=== PATIENT | female | born 1965 | race Caucasian/White ===

== ENCOUNTER 2024-11-04 14:20 | Inpatient (IN) | payer OTHER, SELFPAY ==
[2024-11-04] VITALS (11 sets, daily range): BP systolic 109–177; BP diastolic 58–93; BMI 27.6; BMI 26.1
[2024-11-04] MEDS: NSS 1000 IV ×2 (10:27→19:57)
[2024-11-04] MEDS: ZOFRAN 4 MG IV (10:27)
[2024-11-04] MEDS: TORADOL 15 MG IV (10:28)
[2024-11-04 10:37] LABS: % Basophils 0.3 % (0-2); % Immature Granulocytes 0.6 % (0-0.5); % Lymphocytes 6.9 % (20.5-51.1); % Monocytes 5.8 % (1.7-9.3); % Neutrophils 86.4 % (42.2-75.2); Absolute Immature Granulocytes 0.1 10^3/uL (0-0.05); Absolute Monocytes 0.8 10^3/uL (0.1-0.6); Absolute Neutrophils 12.5 10^3/uL (1.4-6.5); Hematocrit 41.7 % (37.0-47.0); Hemoglobin 14.8 g/dL (12.0-16.0); Mean Corp Hgb Conc. 35.5 g/dL (33.0-37.0); Mean Corpuscular Hgb 31.2 pg (27.0-31.0); Mean Platelet Volume 9.6 fL (7.4-10.4); Nucleated Red Blood Cells % 0 %; Platelet Count 248 10^3/uL (130-400); Red Blood Cell Count 4.74 10^6/uL (4.20-5.40); Red Cell Dist. Width 11.9 % (11.5-14.5); White Blood Cell Count 14.4 10^3/uL (4.8-10.8)
[2024-11-04 10:50] LABS: Albumin 4.6 g/dl (3.5-5.0); Blood Urea Nitrogen 14 mg/dl (7-17); Carbon Dioxide 24 mmol/L (22-30); Total Bilirubin 0.9 mg/dl (0.2-1.3); Total Protein 7.1 g/dl (6.3-8.2); eGFR > 60.00
--- NOTE | 2024-11-04 10:54 | ED.GENMED ---
History of Present Illness
General
Chief Complaint: Abdominal Pain
Source: patient
Exam Limitations: none
Time Seen by Provider: 11/04/24 09:53
Nursing documentation reviewed up to this point in time: agreed with
History of Present Illness
History of Present Illness:
59 y/o F with no chronic medical problems
diagnosed with gallstone back in [facility] [place] on imaging
says she was offered surgery but declined
has been well
2 daysa go she started having soem looser stool but not quite diarrhea, no pain
was well yesterday during the day
she ate bel[place]ian food last night at buffet
thne around 3 am woke with epigastric/RUQ pain followed by nausea/vomtiing
vomited several times
now feels more nauesated and has pain
no cp, sob, fever
she has had some letharyg; her said she fainted; but pt was talking to us when he also said she was fatining;
Review of Systems
Review of Systems
Allergies reviewed?: Yes
All Other Systems: Not applicable
Phy Exam
Physical Exam
Physical Exam:
GENERAL: Alert , in no apparent distress, generally weak
responsive
EYE: pupils equal and reactive
NECK: Supple
ENT: o/p clr, mmm.
CARDIAC: Regular rate and rhythm .
LUNGS: Clear breath sounds bilaterally, no acute respiratory distress, no wheezes/rales/rhonchi
ABDOMEN: Soft, RUQ tenderness + muprhy's sign;, no r/g, no cvat, normal bowel sounds
NEUROLOGICAL: Alert and oriented, no focal neuro deficits
SKIN: Warm and dry, skin intact. pale
MUSCULOSKELETAL: No edema, well perfused. neg ana lilia's sign
PSYCH: Normal and appropriate interaction.
Course
Orders/Labs/Results
Orders:
Orders
11/04/24 10:05
US Abdomen Complete/Upper Urgent
Comment:
Reason For Exam: known gallstones, vomiting, RUQ pain
11/04/24 10:18
Electrocardiogram (*1) Urgent
Reason for Study: Abdominal Pain
0.9% Sodium Chloride 1000 ml [Nss] 1,000 ml IV BOLUS
Ketorolac [Toradol] 15 mg IV NOW STA
Ondansetron Injectable [Zofran] 4 mg IV NOW STA
11/04/24 10:19
EKG- Treatment ONCE
11/04/24 10:24
Complete Blood Count/With Diff Urgent
Comprehensive Metabolic Panel Urgent
Glycohemoglobin (HgbA1c) Urgent
Lipase Urgent
Troponin I Urgent
11/04/24 11:04
Urinalysis Reflex To Culture Urgent
Date Specimen was Collected: 11/04/24
Time Specimen was Collected: 10:58
Urine Microscopic Reflex Cult Urgent
11/04/24 12:20
MRI Abdomen [MR Abdomen W/o & W Contrast] Urgent
Comment:
Reason For Exam: vomiting, gallsteons, cbd dilation
Recent pill cam endoscopy?: No
11/04/24 13:01
Admit/Transfer Patient As Directed
Co-Sign Provider:
Level of Care: Inpatient admission
Assign to:: Medical/Surgical
Physician / Group: efrem arthur
Diagnosis: Cholelithiasis with CBD dilation, acute hyperglycemia
Reason for Hospitalization: Cholelithiasis with CBD dilation, acute hyperglycemia
Expected length of stay greater than two midnights?: Yes
ELOS- Estimated Length of Stay in days: 3
I certify the patient meets the requirements for IP care: Yes
Code Status As Directed
Resuscitation Status: Full Code
11/04/24 13:05
PRN Pain Medication Management As Directed
May give lesser potent ordered pain med per pt: Yes
preference::
Protocol:: Medication orders for pain may be administered in a
manner that supports deferring to patient preference
when the pt is:
- Requesting an ordered lesser potent pain medication.
Least to most potent pain medications are defined
as: acetaminophen < NSAID < tramadol < opioids
(morphine, oxycodone, hydromorphone).
- Requesting a lesser dose of the same medication IF
ORDERED.
- Requesting a less intrusive route of administration
if both routes are prescribed by the provider (PO <
IV).
11/04/24 13:07
Add On- LAB Urgent
Tests Added?: hgbA1c
SURGICAL CONSULT Routine
Consulting Provider: Leo Alvarez
Was physician already notified: Yes
Reason for consult: Cholelithiasis CBD dilation
11/04/24 13:08
GASTROINTESTINAL CONSULT Routine
Consulting Provider: Chago Logan
Was physician already notified: Yes
Reason for consult: Cholelithiasis CBD dilation
Abnormal Lab Results
11/04/24 11/04/24
10:24 11:04
WBC 14.4 H 10^3/uL
(4.8-10.8)
MCH 31.2 H pg
(27.0-31.0)
Abs Immat Gran (auto) 0.1 H 10^3/uL
(0-0.05)
Absolute Neuts (auto) 12.5 H 10^3/uL
(1.4-6.5)
Absolute Lymphs (auto) 1.0 L 10^3/uL
(1.2-3.4)
Absolute Monos (auto) 0.8 H 10^3/uL
(0.1-0.6)
Immature Gran % 0.6 H %
(0-0.5)
Neutrophils % 86.4 H %
(42.2-75.2)
Lymphocytes % 6.9 L %
(20.5-51.1)
Glucose 229 H mg/dl
(70-99)
Hemoglobin A1c 7.0 H %
(4.0-5.6)
Urine Ketones 3+ A
(Negative)
Urine RBC 3-6 A /HPF
(0-2)
Urine Bacteria (Reflex) Few A
(Negative)
Urine Glucose 4+ A
(Negative)
Urine Albumin (Reflex) 1+ A
(Neg - Trace)
11/04/24 10:24
11/04/24 10:24
Vital Signs
Initial and Last Documented VS:
Initial Vital Signs
Pulse Resp BP Pulse Ox
67 18 165/93 100
11/04/24 09:04 11/04/24 09:04 11/04/24 09:04 11/04/24 09:04
Last Documented Vital Signs
Temp Pulse Resp BP Pulse Ox
36.3 C 81 18 126/76 94
11/04/24 09:08 11/04/24 15:00 11/04/24 15:00 11/04/24 15:00 11/04/24 15:00
MDM/Problems Addressed
Differential Diagnosis Includes:
cholelithiasis, cholecystitis, enteritis
MDM/Problems Addressed:
59 y/o F known gallstone
RUQ pain, n/v since 3 am
afebrile
tender ruq, stable vitals
wbc 14
lfts normal
US cholelithiasis, no cholecystitis but cbd is dilated 9 mm
d/w GI and i sent text to surgery as well
MRI w and w/o and MRCP which is what i ordered (both studies)
npo
*Critical Care Note
Total Time (30-74mins, 75-104mins- exclusive of procedures): Not Applicable
ED Attending Note
-
Portions of this chart may have been created with voice recognition software.� Occasional wrong word or��sound alike� substitutions may have occurred due to the inherent limitations of voice recognition software.
Discharge Plan
Departure
Patient Disposition: Admit
Date of Disposition: 11/04/24
Time of Disposition: 12:14
Admit to: Med/Surg
Presentation/result/management discussed w/ accepting MD/DO: Hospitalist
Condition: Fair
Covid-19: Not Applicable
Discharge Problem:
Cholelithiasis
Interventions
Interventions:
*Risk Screen - Suicide Last Done: 11/04/24 09:04
*General Assessment Last Done: 11/04/24 09:04
*Neglect/Abuse Screening Last Done: 11/04/24 09:04
*ED- Fall Risk Assessment Last Done: 11/04/24 11:48
*ED COVID-19 Vaccine History Last Done: 11/04/24 11:52
NG-Evabvw-Wnbcxrsszl Assessment Last Done: 11/04/24 10:14
[2024-11-04 10:59] LABS: Troponin I < 0.012 ng/ml
[2024-11-04 11:31] LABS: Urine Albumin 1+ (Neg - Trace); Urine Bilirubin Negative (Negative); Urine Character Clear (Clear); Urine Color Yellow; Urine Glucose 4+ (Negative); Urine Ketone 3+ (Negative); Urine Leukocyte Negative (Negative); Urine Nitrite Negative (Negative); Urine Occult Blood Negative (Negative); Urine Specific Gravity 1.015 (<1.030); Urine Urobilinogen Negative (Neg - 1+)
[2024-11-04 12:02] LABS: ALT (SGPT) 16 U/L (0-35); AST (SGOT) 20 U/L (14-36); Alkaline Phosphatase 64 U/L (38-126); Calcium 9.8 mg/dl (8.4-10.2); Chloride 103 mmol/L (98-107); Glucose 229 mg/dl (70-99); Lipase 87 U/L (23-300); Potassium 3.6 mmol/L (3.5-5.1); Sodium 138 mmol/L (135-145)
[2024-11-04 12:23] LABS: Urine Mucus Few
[2024-11-04 12:25] LABS: Urine Bacteria Few (Negative)
--- NOTE | 2024-11-04 12:31 | HPS.HSE ---
Family Physician
-
Family Physician: Ted Berger MD
Chief Complaint
-
Right upper quadrant abdominal pain since last night with multiple episodes of nausea, vomiting, loose stool 2 days ago
History of Present Illness
59-year-old female complaining of some loose stool 2 days ago then yesterday after eating at a [place] buffet last night she woke up at 3 AM with right upper quadrant and epigastric pain followed by nausea and vomiting several times. She was
diagnosed with a gallstone back in March 2024 at [facility] on imaging studies she was offered surgery at that time but declined. She states her sister also had history of gallstones and required a cholecystectomy. 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 The patient has known history of gallstones discovered March 2024 and menopause on hormonal
replacement therapy
Medical History
Past Medical History
Past Medical History: Reports Other
Additional Past Medical History:
Menopause
Past Surgical History: Reports Other
Additional Past Surgical History:
Appendectomy
section
Social History
Tobacco: Non-smoker
Alcohol: None
Drug: None
Personal:
Living: With Family
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
Family History
Family History: Other (Sister history of gallstones)
Allergies / Home Medications
Allergies reflects when Allergies were last updated in [employer].
Home Medications with original date entered in [employer]
Allergy/Medication List:
Allergies
Allergy/AdvReac Type Severity Reaction Status Date / Time
No Known Allergies Allergy Unverified 11/04/24 09:03
Home Medications
Combipatch 1 patch topical TH 11/04/24
ascorbic acid (vitamin C) 500 mg tablet (Vitamin C) 500 mg PO DAILY 11/04/24
cholecalciferol (vitamin D3) 25 mcg (1,000 unit) tablet (Vitamin D3) 25 mcg PO DAILY 11/04/24
jb-7-ycx-epa-fish oil-vit D3 300 mg-1,000 mg-1,000 unit capsule (Fish Oil-Vit D3) 1 cap PO DAILY 11/04/24
Review of Systems
-
History Source: Patient and Family ( at bedside)
A 12 point ROS was completed and negative except as noted: Yes
Constitutional: Denies Fever or Chills
EENT: Denies Sore Throat or Runny Nose
Respiratory: Denies Cough or Trouble Breathing
Cardiac: Denies Chest Pain, Diaphoresis, Palpitations or Syncope
Abdomen/GI: Reports Abdominal Pain (Right upper quadrant through to back), Nausea and Vomiting; Denies Diarrhea, Constipated or Bloody Stools
: Denies Dysuria, Frequency, Flank Pain, Incontinence or Difficulty Voiding
Musculoskeletal: Denies Joint Pain or Edema
Skin: Denies Itching or Rash
Neurological: Denies Dizzy or Headache
Endocrine: Reports No Symptoms
Hematologic/Lymphatic: Reports No Symptoms
Psych: Reports Calm
Physical Exam
Vital Signs
Vital Signs
Temp Pulse Resp BP Pulse Ox
97.3 F 67 18 135/79 96
11/04/24 09:08 11/04/24 09:04 11/04/24 09:04 11/04/24 12:00 11/04/24 12:00
Physical Exam
General: Conversant; No Fever or Chills
HEENT: NormoCephalic, Anicteric, Moist mucous membranes, [place] Conjunctivae and No Ptosis
Respiratory: Clear; No Wheezes, Rales or Rhonchi
Cardiac: S1/S2 and Regular Rhythm; No Murmur, Rub, Gallop or Peripheral Edema
Breast: Deferred by me
GI: Soft, Non Distended, Normal Bowel Sounds, Tender (Right upper quadrant, positive Wilson sign) and No Hepatosplenomegaly
Rectal: Deferred by Provider
Genito-urinary: Deferred by me
Musculoskeletal: No Clubbing, No Cyanosis and No Edema
Skin: Warm and Dry; No Rash
Neuro: AO x 3, No Motor Deficits, Nonfocal/grossly intact, Cranial Nerves Intact and No Sensory Deficits; No Slurred Speech, Facial Droop, Tremors or Sedated
Psych: Calm
Laboratory Results
-
11/04/24 10:24
11/04/24 10:24
Laboratory Results
Total Bilirubin 0.9 mg/dl (0.2-1.3) 11/04/24 10:24
AST 20 U/L (14-36) 11/04/24 10:24
ALT 16 U/L (0-35) 11/04/24 10:24
Alkaline Phosphatase 64 U/L (38-126) 11/04/24 10:24
Troponin I < 0.012 ng/ml 11/04/24 10:24
Lipase 87 U/L (23-300) 11/04/24 10:24
Data Reviewed
-
Ultrasound: Report Reviewed by me
Lab Data: Labs Reviewed by me
Impression/Plan
-
Impression/plan:
Admit to MedSurg
#Acute cholelithiasis with CBD dilation concern for obstructing stone
WBC 14.4 with left shift, afebrile 97.3, HR 67, 135/79
LFTs WNL
- Consult GI
-Consult general surgery
- N.p.o.
- IV NSS
- MRI with and without contrast and MRCP
- IV Toradol
- IV Zofran
- Pain control
Abdominal ultrasound abdomen complete:
1. Cholelithiasis no abnormal gallbladder wall thickening
2. Dilation of the common bile duct measuring 9 mm no duct filling defects
3. Question complex cyst right kidney .
#Acute hyperglycemia
BS 229, check HgbA1c
#Menopause on hormonal patch
- Patient is on estradiol/norethindrone transdermal patch once a week on
DVT prophylaxis
SCDs
Full code
--- NOTE | 2024-11-04 12:39 | W.PN.UPDATE ---
Addendum entered and electronically signed by Deangelo Wilks MD 11/05/24 11:43:
11/04/24 MRI /MRCP abdomen
1. ACUTE CALCULUS CHOLECYSTITIS.
2. Mild extrahepatic biliary dilatation.
3. Tiny pancreatic cysts measuring up to 3 mm in size.
4. Small bilateral renal cysts.
5. Small hiatal hernia.
Addendum entered and electronically signed by Deangelo Wilks MD 11/04/24 13:11:
Random BG low 200s DDX: pre diabetic vs. Glucose intolerance
- check A1C
Original Note:
Update Note
Progress Note Update
This note serves as an addendum to the H&P by gastroenterologist JUAN CARLOS ISRAEL
HPI
59F No significant PMHX diagnosed with gallstone March 2024 [facility] on imaging. She says she was offered surgery but declined. She has been has been well. Seen at ER:
- 2 days ago having some looser stool but not quite diarrhea. No pain with loose BM
- had [place] food last night at buffet then around 3 am woke with epigastric/RUQ pain followed by nausea/vomtiing
- vomited several times
PHX; known Gall stone
Vital Signs
Temp Pulse Resp BP Pulse Ox
97.3 F 67 18 135/79 96
11/04/24 09:08 11/04/24 09:04 11/04/24 09:04 11/04/24 12:00 11/04/24 12:00
PE
Gen: pleasant, not toxic
HEENT: anicteric
Neck: no JVD
Lungs: CTA
Cor: RRR S1 S2
Abdomen: soft NT, NG, NRT
MEDICAL SALES SPECIALIST: AAO3, NFND
MS: no edema
Psych: approriate, nl mood and affect
Data
WCC 14.4
Nl Cr Nl eGFR
BG 229
Nl LFts
Nl Lipase
NEG TPNI
NEG UA
US Abdomen Complete/Uppe
1. Cholelithiasis. No abnormal gallbladder wall thickening or pericholecystic fluid. Negative sonographic Wilson sign.
2. Dilation of the common bile duct. No common duct filling defects identified sonographically.
3. Question complex cyst right kidney as above. This could be further evaluated with follow-up contrast-enhanced CT nonemergently.
NO PRIOR hospitalist admission:
ASSESSMENT & PLAN
Acute biliary colic with RUQ pain and N/V
Sono POS for Cholelithiasis. No abnormal gallbladder wall thickening or pericholecystic fluid. Negative sonographic Wilson sign.
CBD dilatation . No filing defects in CBD
AFVSS
Tender RUQ
Afebrile leucocytosis wth Nl LFTs
- NPO and IVF
- PRN narcotic analgesia
- PRN Antiemetics
- Hold off ABx
- ER d/w GI and text to GS- - suggested MRI w and w/o and MRCP
- ER consulted to GI and GS
DVT Px: SCD
Full code
IP MS
--- NOTE | 2024-11-04 15:13 | CON.GS ---
Addendum entered and electronically signed by Leo Alvarez MD 11/05/24 09:13:
Delayed entry from 11/04/2024
I saw and examined the patient independently.
The Dial Screw Assembler's note was reviewed and I agree with the note, assessment and plan except where noted below.
Comment: This is a 59-year-old female with history of appendectomy and and known gallbladder disease and prior episodes of cholecystitis managed nonoperatively here with similar. She is reluctant to undergo definitive cholecystectomy
however exam, history, blood work and MRI imaging all consistent with acute calculus cholecystitis.
N.p.o., IV fluids, IV antibiotics.
Will discuss with patient tomorrow once again regarding surgery as this is certainly recommended with her clinical picture.
Surgery will follow.
Original Note:
Consultation
-
Date/Time Consultation Performed: 11/04/24 1500
Reason for Consultation: RUQ pain
Medical History
-
Chief Complaint: RUQ pain
History of Present Illness:
Ms Gongora is a 59 yo female with a h/o cholelithiasis with prior episode of cholecystitis with sepsis that was treated with antibiotics alone at [facility] in March as she declined surgery at that time. She notes that she may have passed a stone then
but did not require an ERCP. She has not followed with a surgeon as an outpatient since that time and denies other episodes of RUQ. Yesterday, she ate at a [employer] buffet and went to bed as usual but was awakened from sleep with severe RUQ pain
across the epigastrium and into her back with nausea and vomiting. She vomited multiple times and every time she tried to drink even water she vomited it up. Pain persisted causing her to present through the ED for evaluation. She notes that it is
much better after analgesics in the ED but still with pain to deep palpation in the RUQ (+wilson's). She denies fevers or chills.
Past Medical History
Past Medical History: Other (cholelithiasis/cholecystitis)
Past Surgical History: Appendectomy and
Social History
Tobacco: Non-Smoker
Alcohol: None
Personal:
Living: With Family
Family History
Family History: Reviewed & Not Pertinent
Allergies / Home Medications
Allergy/AdvReac Type Severity Reaction Status Date / Time
No Known Allergies Allergy Unverified 11/04/24 09:03
�Medication �Instructions �Recorded �Confirmed �Type
Combipatch 1 patch topical TH 11/04/24 11/04/24 History
ascorbic acid (vitamin C) 500 mg 500 mg PO DAILY 11/04/24 11/04/24 History
tablet (Vitamin C)
cholecalciferol (vitamin D3) 25 25 mcg PO DAILY 11/04/24 11/04/24 History
mcg (1,000 unit) tablet (Vitamin
D3)
sj-2-scd-epa-fish oil-vit D3 300 1 cap PO DAILY 11/04/24 11/04/24 History
mg-1,000 mg-1,000 unit capsule
(Fish Oil-Vit D3)
Review of Systems
-
History Source: Patient and Family
All other systems: Negative unless noted
A 10 point review of systems was completed, and was negative except as per HPI.
Physical Exam
Vital Signs
Temp Pulse Resp BP Pulse Ox
97.3 F 72 16 141/86 93
11/04/24 09:08 11/04/24 13:18 11/04/24 13:18 11/04/24 14:00 11/04/24 14:45
11/03/24 11/04/24 11/05/24
06:59 06:59 06:59
Actual Weight 73 kg
Body Mass Index (BMI) 27.6
Lab Results
11/04/24 10:24
11/04/24 10:24
WBC 14.4 10^3/uL (4.8-10.8) H 11/04/24 10:24
Hgb 14.8 g/dL (12.0-16.0) 11/04/24 10:24
Hct 41.7 % (37.0-47.0) 11/04/24 10:24
Plt Count 248 10^3/uL (130-400) 11/04/24 10:24
Abs Immat Gran (auto) 0.1 10^3/uL (0-0.05) H 11/04/24 10:24
Neutrophils % 86.4 % (42.2-75.2) H 11/04/24 10:24
Physical Exam
General: Well Developed and Well Nourished
HEENT: Moist Mucous Membranes
Respiratory: Non Labored Respirations
GI: Soft, Non Distended and Tender (RUQ )
Skin: Warm and Dry
Neuro: Awake, Alert and AO x 3
Psych: Calm
Data Reviewed
-
Ultrasound: Image Personally Visualized and interpreted, Report Reviewed by me, Discussed with Physician and Discussed with Patient
Labs: Labs Reviewed by me, Discussed with Physician and Discussed with Patient
Old Records: Reviewed
Assessment / Plan
-
Ms Gongora is a 59 yo female with a h/o cholelithiasis with prior episode of cholecystitis with sepsis that was treated with antibiotics alone at [facility] in March as she declined surgery at that time who developed RUQ overnight after a high fat meal
with n/v. US with cholelithiasis without pericholecystic fluid or gallbladder wall thickening. CBD dilated. LFT's WNL. Leukocytosis to 14.4. Wilson's positive on exam. No fevers, chills. VSS.
Discussed laparoscopic cholecystectomy, she is very apprehensive about surgery and is declining at this time. She is agreeable to possibly scheduling surgery in the future on an outpatient basis. She is agreeable to antibiotics.
--Start IV ABX with cefotetan BID
--Analgesics/antiemetics prn
--MRCP planned to r/o choledocholithiasis with GI consult pending
--NPO for now
--Trend labs/exams
--- NOTE | 2024-11-04 16:24 | CON.GI ---
Consultation
-
Date/Time Consultation Requested: 11/04/2024
Date/Time Consultation Performed: 11/04/2024
Requesting Provider:
Performing Provider:
Reason for Consultation: RUQ pain
Medical History
Chief Complaint / HPI
Chief Complaint: RUQ pain
History of Present Illness:
59-year-old female with no significant past medical history presenting with complaints of epigastric/right upper quadrant abdominal pain that woke her up from sleep early this morning after she had Italian food for dinner around 5 pm last
night.Radha pain, radiating f4rom epigastrium to RUQ and upper back. Nausea/vomiting of food and water. No fevers or chills. She reports that she was feeling well until yesterday and even after dinner was feeling fine. Patient has history of
cholecystitis/with sepsis in March 2024, was at [facility], treated with antibiotics and lap cholecystectomy suggested patient declined as she wanted to just modify diet and help symptoms. Since after her last episode,
patient denies any symptoms except last night.
On a regular basis, no abdominal pain,nausea, vomiting, heart burn or dysphagia. No constipation/diarrhea, blood or black stool. No TOOTIE/LOW, no NSAID use.
Reports having colonoscopy 5 yrs ago at [facility] with , rectal polyp removed and was asked to come back in 5 years. No h/o PUD.
In the emergency room, she was noted leukocytosis with white count of 14.4, CMP shows normal LFTs and lipase. Hemoglobin A1c elevated at 7.0.
Abdominal ultrasound shows cholelithiasis without any pericholecystic fluid or gallbladder wall thickening, dilation of the common duct to 9 mm without any aberrant filling defects.
No FH of colon ca.
Past Medical History
Past Medical History: None
Past Surgical History: Appendectomy and
Social History
Tobacco: Non-Smoker
Alcohol: None
Family History
Family History: Reviewed & Not Pertinent (sister-gall stones)
Allergies / Home Medications
Allergy/AdvReac Type Severity Reaction Status Date / Time
No Known Allergies Allergy Unverified 11/04/24 09:03
�Medication �Instructions �Recorded
Combipatch 1 patch topical TH 11/04/24
ascorbic acid (vitamin C) 500 mg 500 mg PO DAILY 11/04/24
tablet (Vitamin C)
cholecalciferol (vitamin D3) 25 25 mcg PO DAILY 11/04/24
mcg (1,000 unit) tablet (Vitamin
D3)
oe-1-dgn-epa-fish oil-vit D3 300 1 cap PO DAILY 11/04/24
mg-1,000 mg-1,000 unit capsule
(Fish Oil-Vit D3)
Review of Systems
-
All other systems: A 12 pt ROS was Negative except as stated above in HPI
Vital Signs
Temp Pulse Resp BP Pulse Ox
97.3 F 81 18 126/76 94
11/04/24 09:08 11/04/24 15:00 11/04/24 15:00 11/04/24 15:00 11/04/24 15:00
Physical Exam
Exam
GI: Soft and Tender (RUQ tenderness without guarding/rigidity)
Results
WBC 14.4 10^3/uL (4.8-10.8) H 11/04/24 10:24
Hgb 14.8 g/dL (12.0-16.0) 11/04/24 10:24
Hct 41.7 % (37.0-47.0) 11/04/24 10:24
MCV 88.0 fL (81.0-99.0) 11/04/24 10:24
Plt Count 248 10^3/uL (130-400) 11/04/24 10:24
Absolute Neuts (auto) 12.5 10^3/uL (1.4-6.5) H 11/04/24 10:24
Sodium 138 mmol/L (135-145) 11/04/24 10:24
Potassium 3.6 mmol/L (3.5-5.1) 11/04/24 10:24
Chloride 103 mmol/L (98-107) 11/04/24 10:24
Carbon Dioxide 24 mmol/L (22-30) 11/04/24 10:24
BUN 14 mg/dl (7-17) 11/04/24 10:24
Creatinine 0.6 mg/dL (0.6-1.0) 11/04/24 10:24
Calcium 9.8 mg/dl (8.4-10.2) 11/04/24 10:24
Total Bilirubin 0.9 mg/dl (0.2-1.3) 11/04/24 10:24
AST 20 U/L (14-36) 11/04/24 10:24
ALT 16 U/L (0-35) 11/04/24 10:24
Alkaline Phosphatase 64 U/L (38-126) 11/04/24 10:24
Lipase 87 U/L (23-300) 11/04/24 10:24
Diagnostic Image Results:
Prior GI Procedures:
EGD:
Colonoscopy:
Assessment / Plan
-
59-year-old female with history of cholelithiasis with sepsis March 2024 admitted at [facility] with
Laparoscopic cholecystectomy now presenting with epigastric/right upper quadrant abdominal pain that woke her up from sleep early this morning after eating Italian buffet last night. Normal LFTs and lipase.
Abdominal ultrasound showing gallstones without any evidence of acute cholecystitis but CBD dilation noted.
- RUQ/epigastric pain, r/o choledocholithiasis/biliary colic
Agree with MRI/MRCP- await results
Currently NPO
On cefotetan
If Choledocholithiasis, then will need ERCP otherwise further management per surgery.
Will f/u on the above testing.
f/u with OP GI for her routine colonoscopy.
.
-
-
Thank you for consultation and allowing me to participate in the patient's care. Please call the configuration management specialist GI physician during the after hours with any questions or concerns.
[2024-11-04] MEDS: CEFOTAN 2000 MG IV (17:22)
[2024-11-04] MEDS: STERILE WATER FOR INJECTION 10 ML IV (17:22)
[2024-11-04] MEDS: DILAUDID 0.5 MG IV (17:38)
--- NOTE | 2024-11-04 19:10 | W.PN.UPDATE ---
Update Note
Progress Note Update
I reviewed MRI. No stones in the common bile duct. LFTs are normal. MRI consistent with acute cholecystitis. Care per surgery. GI will sign off. Please call with questions.
[2024-11-04] MEDS: TORADOL 30 MG IV (19:56)
[2024-11-04 20:27] LABS: Glucose - Point of Care 122 mg/dl (70-99)
--- NOTE | 2024-11-04 21:30 | PTCARENOTE ---
11/04 at 1915- Received pt from ED via stretcher, with spouse at bedside. Pt admitted for Acute Cholecystitis. Medsurg order> T100, HR 78, RR 16, BP 138/73, pox 94% room air. states a 10/10 Abdominal pain- Toradol administered. IVF ordered and
administered via #20RAC IV. NPO orders.
PMH and medications reviewed by this RN and patient. Plan of care discussed. Patient oriented to room and call flores within place.
[2024-11-05 00:06] LABS: Glucose - Point of Care 129 mg/dl (70-99)
[2024-11-05] MEDS: TORADOL 30 MG IV ×2 (04:09→10:54)
[2024-11-05] MEDS: CEFOTAN 2000 MG IV ×2 (05:14→18:02)
[2024-11-05] MEDS: STERILE WATER FOR INJECTION 10 ML IV ×2 (05:15→18:02)
[2024-11-05] MEDS: NSS 1000 IV ×2 (05:21→21:41)
[2024-11-05 05:47] LABS: % Basophils 0.2 % (0-2); % Eosinophils 0.2 % (0-6); % Immature Granulocytes 0.5 % (0-0.5); % Lymphocytes 9.5 % (20.5-51.1); % Monocytes 8.4 % (1.7-9.3); % Neutrophils 81.2 % (42.2-75.2); Absolute Immature Granulocytes 0.1 10^3/uL (0-0.05); Absolute Lymphocytes 1.2 10^3/uL (1.2-3.4); Absolute Neutrophils 9.9 10^3/uL (1.4-6.5); Hematocrit 39.4 % (37.0-47.0); Hemoglobin 13.9 g/dL (12.0-16.0); Mean Corp Hgb Conc. 35.3 g/dL (33.0-37.0); Mean Corpuscular Hgb 31.5 pg (27.0-31.0); Mean Corpuscular Volume 89.3 fL (81.0-99.0); Mean Platelet Volume 9.4 fL (7.4-10.4); Nucleated Red Blood Cells % 0 %; Platelet Count 220 10^3/uL (130-400); Red Blood Cell Count 4.41 10^6/uL (4.20-5.40); Red Cell Dist. Width 12.3 % (11.5-14.5); White Blood Cell Count 12.2 10^3/uL (4.8-10.8)
[2024-11-05 05:55] LABS: Glucose - Point of Care 170 mg/dl (70-99)
[2024-11-05 06:17] LABS: ALT (SGPT) 12 U/L (0-35); AST (SGOT) 16 U/L (14-36); Albumin 3.7 g/dl (3.5-5.0); Alkaline Phosphatase 57 U/L (38-126); Blood Urea Nitrogen 9 mg/dl (7-17); Calcium 8.2 mg/dl (8.4-10.2); Carbon Dioxide 23 mmol/L (22-30); Chloride 105 mmol/L (98-107); Estimated Creatinine Clearance 88 ml/min; Glucose 165 mg/dl (70-99); HDL Cholesterol 62 mg/dl; LDL Cholesterol, Calculated 151 mg/dl; Potassium 3.4 mmol/L (3.5-5.1); Sodium 138 mmol/L (135-145); Total Bilirubin 1.2 mg/dl (0.2-1.3); Total Cholesterol 227 mg/dl (50-199); Total Protein 5.9 g/dl (6.3-8.2); Triglyceride 74 mg/dl (10-149); Very Low Density Lipoprotein 14 mg/dl (0-30); eGFR > 60.00
--- NOTE | 2024-11-05 06:18 | PTCARENOTE ---
Patient refused 0600 insulin. Glucose 170. Pt states she is diet controlled. A1c 7.0
[2024-11-05 07:58] VITALS: BP 130/69
--- NOTE | 2024-11-05 08:10 | W.PN.HOSP.TC ---
Today's Communication/Plan
-
cont abx
advance diet as tolerated
IVF support
pain control
prn antiemetic
Assessment / Plan
Assessment / Plan
Physical Exam
General: No acute distress, appears comfortable at this time, ambulatory without need for assist device
HEENT: NormoCephalic, Anicteric, Moist mucous membranes, [place] Conjunctivae and No Ptosis
Respiratory: Clear; No Wheezes, Rales or Rhonchi
Cardiac: S1/S2 and Regular Rhythm; No Murmur, Rub, Gallop or Peripheral Edema
GI: Soft, Non Distended, Normal Bowel Sounds, Tender (Right upper quadrant, positive Wilson sign) and No Hepatosplenomegaly
Musculoskeletal: No Clubbing, No Cyanosis and No Edema
Skin: Warm and Dry; No Rash
Neuro: AO x 3 conversant coherent
Psych: Calm
#Acute Calculous Cholecystitis
-Consult GI appreciated
-Consult general surgery appreciated patient declining sx at this time, cont conservative mgmt at this time, abx Cefotetan 2g Q12H
- Clear liquid diet, ok to advance as tolerated
- IV NSS
- prn Toradol dilaudid
- prn Zofran
Abdominal ultrasound abdomen complete:
1. Cholelithiasis no abnormal gallbladder wall thickening
2. Dilation of the common bile duct measuring 9 mm no duct filling defects
3. Question complex cyst right kidney .
Abd MRI appreciated:
1. Acute Calculous Cholecystitis
2. Mild extrahepatic biliary dilatation.
3. Tiny pancreatic cysts measuring up to 3 mm in size.
4. Small bilateral renal cysts.
5. Small hiatal hernia.
#Acute hyperglycemia
#Mild Diabetes
HgbA1c 7.0
Sliding scale
#Menopause on hormonal patch
- Patient is on estradiol/norethindrone transdermal patch once a week on
DVT prophylaxis
SCDs
Full code
Discussed with patient and patient's Noe
I spent a total of 50 minutes with the patient or on the floor. More than 50% of this time involved counseling and coordination of care.
Anticipated Discharge: 24 - 48 hours
Subjective/Interval History
-
Date of Service: November 05, 2024
No acute distress. Overall reports feeling well. RUQ tenderness persists.
Objective Data
-
Labs:
Laboratory Results
11/05/24
05:07
WBC 12.2 H
Hgb 13.9
Hct 39.4
Plt Count 220
Sodium 138
Potassium 3.4 L
Chloride 105
Carbon Dioxide 23
BUN 9
Creatinine 0.5 L
Glucose 165 H
Calcium 8.2 L D
Total Bilirubin 1.2
AST 16
ALT 12
Alkaline Phosphatase 57
Vital Signs:
Vital Signs
Temp Pulse Resp BP Pulse Ox
98.8 F 75 16 130/69 96
11/05/24 07:58 11/05/24 07:58 11/05/24 07:58 11/05/24 07:58 11/05/24 07:58
I&O
11/04/24 11/05/24 11/06/24
06:59 06:59 06:59
Intake Total 1200 / 1200
Balance 1200 / 1200
--- NOTE | 2024-11-05 09:42 | W.PN.GS2 ---
Today's Communication / Plan
-
patient refusing surgery
Continue IV antibiotics
Okay to feed when patient amenable
Assessment / Plan
-
This is a 59-year-old female who presents with her second bout of acute cholecystitis.
Had a lengthy discussion with the patient regarding management of acute calculus cholecystitis which was confirmed on her MRI. Her blood work remains relatively stable. Clinically however she feels better and she is adamant that she does not want
surgery at this time. She 'wants to wait for all of her inflammation to be gone'. I explained that delaying surgery is not recommended and that she may worsen. If she waits >24h we may elect to pursue a temporizing percutaneous cholecystostomy
tube instead of surgery. She also understands that she is increasing her risk for morbidity, intraoperative complications and mortality. She nevertheless wishes to pursue nonoperative management with antibiotics alone at this time. She is of
sound mind and understands completely the risk benefits of the alternative approaches presented to her.
She wishes to maintain n.p.o. at this time, though okay to feed clears/low-fat diet from a surgery perspective.
Continue IV antibiotics, anticipate a 2-week course
Surgery will follow peripherally
Time Spent
Total Time Spent with Patient (in minutes): 25
Subjective Data
-
Date of Service: November 05, 2024
Interval Events:
No acute events overnight. Slept okay. Pain Controlled, slightly improved. Denies Nausea/Vomiting.
Objective Data
-
Intake and Output
11/04/24 11/05/24 11/06/24
06:59 06:59 06:59
Intake Total 1200 / 1200
Balance 1200 / 1200
Intake:
IV fluids (Total) 1200 / 1200
Other:
Number of approximated MODERATE 2
amounts of urine
Vital Signs
Temp Pulse Resp BP Pulse Ox
98.8 F 75 16 130/69 96
11/05/24 07:58 11/05/24 07:58 11/05/24 07:58 11/05/24 07:58 11/05/24 07:58
Lab Results
11/05/24 05:07
11/05/24 05:07
Calcium 8.2 mg/dl (8.4-10.2) L D 11/05/24 05:07
Total Bilirubin 1.2 mg/dl (0.2-1.3) 11/05/24 05:07
AST 16 U/L (14-36) 11/05/24 05:07
ALT 12 U/L (0-35) 11/05/24 05:07
Alkaline Phosphatase 57 U/L (38-126) 11/05/24 05:07
Total Protein 5.9 g/dl (6.3-8.2) L 11/05/24 05:07
Albumin 3.7 g/dl (3.5-5.0) 11/05/24 05:07
Physical Exam
-
GENERAL/NEURO: Awake, Alert, looks mildly uncomfortable
CHEST: Unlabored breathing on RA
ABDOMEN: Soft, tender to palpation in the right upper quadrant
Patient has a phan catheter: No
Patient has a central line: No
[2024-11-05 12:07] LABS: Glucose - Point of Care 115 mg/dl (70-99)
[2024-11-05] MEDS: KCL 40 MEQ PO (13:31)
[2024-11-05 15:55] VITALS: BP 155/85
[2024-11-05] MEDS: DILAUDID 0.5 MG IV ×2 (16:00→20:01)
--- NOTE | 2024-11-05 17:15 | CM ---
Alert awake oriented patient who lives with her Noe in a 2 story home with 1 steps to enter and 20 steps to bed/bathroom. She is independent in activates of daily living.She does drive .She use no adaptive devices.Offered VM she declined
need.
No VN in past . No SNF hx
Pharmacy [facility]
PCP Dr Farrukh Watson
PLAN Home with no needs
[2024-11-05 21:35] LABS: Glucose - Point of Care 172 mg/dl (70-99)
[2024-11-05 23:35] VITALS: BP 140/88
[2024-11-06] MEDS: DILAUDID 0.5 MG IV ×2 (01:04→06:22)
[2024-11-06] MEDS: ZOFRAN 4 MG IV (01:13)
[2024-11-06] MEDS: CEFOTAN 2000 MG IV ×2 (06:20→17:28)
[2024-11-06] MEDS: STERILE WATER FOR INJECTION 10 ML IV ×2 (06:20→17:28)
[2024-11-06] MEDS: NSS 1000 IV ×3 (06:30→22:13)
[2024-11-06 06:32] LABS: % Basophils 0.3 % (0-2); % Eosinophils 0.4 % (0-6); % Immature Granulocytes 0.4 % (0-0.5); % Lymphocytes 8.9 % (20.5-51.1); % Monocytes 8.5 % (1.7-9.3); % Neutrophils 81.5 % (42.2-75.2); Absolute Eosinophils 0.1 10^3/uL (0-0.7); Absolute Immature Granulocytes 0.1 10^3/uL (0-0.05); Absolute Lymphocytes 1.2 10^3/uL (1.2-3.4); Absolute Monocytes 1.2 10^3/uL (0.1-0.6); Absolute Neutrophils 11.2 10^3/uL (1.4-6.5); Hematocrit 37.3 % (37.0-47.0); Hemoglobin 12.9 g/dL (12.0-16.0); Mean Corp Hgb Conc. 34.6 g/dL (33.0-37.0); Mean Corpuscular Hgb 31.2 pg (27.0-31.0); Mean Corpuscular Volume 90.3 fL (81.0-99.0); Mean Platelet Volume 9.9 fL (7.4-10.4); Nucleated Red Blood Cells % 0 %; Platelet Count 211 10^3/uL (130-400); Red Blood Cell Count 4.13 10^6/uL (4.20-5.40); Red Cell Dist. Width 12.2 % (11.5-14.5); White Blood Cell Count 13.7 10^3/uL (4.8-10.8)
[2024-11-06 06:54] LABS: ALT (SGPT) 11 U/L (0-35); AST (SGOT) 16 U/L (14-36); Albumin 3.5 g/dl (3.5-5.0); Alkaline Phosphatase 62 U/L (38-126); Blood Urea Nitrogen 5 mg/dl (7-17); Calcium 8.1 mg/dl (8.4-10.2); Carbon Dioxide 23 mmol/L (22-30); Chloride 103 mmol/L (98-107); Estimated Creatinine Clearance 88 ml/min; Glucose 133 mg/dl (70-99); Potassium 3.6 mmol/L (3.5-5.1); Sodium 136 mmol/L (135-145); Total Bilirubin 1.1 mg/dl (0.2-1.3); Total Protein 5.7 g/dl (6.3-8.2); eGFR > 60.00
--- NOTE | 2024-11-06 07:28 | W.PN.HOSP.TC ---
Today's Communication/Plan
-
cont abx
pain control
low fat/carb controlled diet as tolerated
Diabetes Education
Assessment / Plan
Assessment / Plan
Physical Exam
General: No acute distress, appears comfortable at this time, ambulatory without need for assist device
HEENT: NormoCephalic, Anicteric, Moist mucous membranes, [place] Conjunctivae and No Ptosis
Respiratory: Clear; No Wheezes, Rales or Rhonchi
Cardiac: S1/S2 and Regular Rhythm; No Murmur, Rub, Gallop or Peripheral Edema
GI: Soft, Non Distended, Normal Bowel Sounds, Tender (Right upper quadrant, positive Wilson sign) and No Hepatosplenomegaly
Musculoskeletal: No Clubbing, No Cyanosis and No Edema
Skin: Warm and Dry; No Rash
Neuro: AO x 3 conversant coherent
Psych: Calm
#Acute Calculous Cholecystitis
-Consult GI appreciated
-Consult general surgery appreciated patient declining sx at this time, cont conservative mgmt at this time, abx Cefotetan 2g Q12H
- Low fat diet as tolerated
- IV NSS
- prn Toradol dilaudid
-IV tylenol as per surgery
- prn Zofran
Abdominal ultrasound abdomen complete:
1. Cholelithiasis no abnormal gallbladder wall thickening
2. Dilation of the common bile duct measuring 9 mm no duct filling defects
3. Question complex cyst right kidney .
Abd MRI appreciated:
1. Acute Calculous Cholecystitis
2. Mild extrahepatic biliary dilatation.
3. Tiny pancreatic cysts measuring up to 3 mm in size.
4. Small bilateral renal cysts.
5. Small hiatal hernia.
#Acute hyperglycemia
#Mild Diabetes
HgbA1c 7.0
Sliding scale
Diabetic Education provided
carb control diet
#Menopause on hormonal patch
- Patient is on estradiol/norethindrone transdermal patch once a week on
DVT prophylaxis
SCDs
Full code
I spent a total of 40 minutes with the patient or on the floor. More than 50% of this time involved counseling and coordination of care.
Anticipated Discharge: 24 - 48 hours
Subjective/Interval History
-
Date of Service: November 06, 2024
Seen and examined at bedside in no acute distress resting comfortably in bed. Pain however persists. Continues to require IV pain meds.
Objective Data
-
Labs:
Laboratory Results
11/06/24
05:04
WBC 13.7 H
Hgb 12.9
Hct 37.3
Plt Count 211
Sodium 136
Potassium 3.6
Chloride 103
Carbon Dioxide 23
BUN 5 L
Creatinine 0.5 L
Glucose 133 H
Calcium 8.1 L
Total Bilirubin 1.1
AST 16
ALT 11
Alkaline Phosphatase 62
Vital Signs:
Vital Signs
Temp Pulse Resp BP Pulse Ox
99.5 F 80 17 140/88 92
11/05/24 23:35 11/05/24 23:35 11/05/24 23:35 11/05/24 23:35 11/05/24 23:35
I&O
11/05/24 11/06/24 11/07/24
06:59 06:59 06:59
Intake Total 1200 / 1200 1800 / 1800
Balance 1200 / 1200 1800 / 1800
[2024-11-06 07:29] VITALS: BP 142/84
[2024-11-06 07:38] LABS: Glucose - Point of Care 131 mg/dl (70-99)
[2024-11-06] MEDS: OFIRMEV 100 IV ×3 (10:32→22:14)
[2024-11-06 11:32] LABS: Glucose - Point of Care 119 mg/dl (70-99)
--- NOTE | 2024-11-06 11:37 | W.PN.GS2 ---
Today's Communication / Plan
-
Cont nonop mgmt of ACC per pt request
Assessment / Plan
-
This is a 59-year-old female who presents with her second bout of acute cholecystitis.
Again had a lengthy discussion with the patient regarding management of acute calculus cholecystitis which was confirmed on her MRI. Her WBC increased today. Clinically she continues with significant pain med reqs and nausea however she is adamant
that she does not want surgery at this time. I explained that delaying surgery is not recommended and that she may worsen. At this point if she fails to improve we would likely proceed with temporizing percutaneous cholecystostomy tube instead of
surgery.
A computer was brought to the bedside and we reviewed her vitals, labs and imaging together. She understands that she is increasing her risk for morbidity, intraoperative complications and mortality. She nevertheless wishes to pursue nonoperative
management with antibiotics alone at this time. She is of sound mind and understands completely the risk benefits of the alternative approaches presented to her.
She wishes to maintain n.p.o. at this time, though okay to feed clears/low-fat diet from a surgery perspective.
Continue IV antibiotics, anticipate a 2-week course
Surgery will follow peripherally
Subjective Data
-
Date of Service: November 06, 2024
Low grade temps, ongoing ruq pain, ongoing nausea with small emesis, does not feel improved
Objective Data
-
Intake and Output
11/05/24 11/06/24 11/07/24
06:59 06:59 06:59
Intake Total 1200 / 1200 1800 / 1800
Balance 1200 / 1200 1800 / 1800
Intake:
Oral fluids 600 / 600
IV fluids (Total) 1200 / 1200 1200 / 1200
Other:
Number of approximated MODERATE 2 2
amounts of urine
Vital Signs
Temp Pulse Resp BP Pulse Ox
99.5 F 97 14 142/84 93
11/06/24 07:29 11/06/24 07:29 11/06/24 07:29 11/06/24 07:29 11/06/24 07:29
Lab Results
11/06/24 05:04
11/06/24 05:04
Calcium 8.1 mg/dl (8.4-10.2) L 11/06/24 05:04
Total Bilirubin 1.1 mg/dl (0.2-1.3) 11/06/24 05:04
AST 16 U/L (14-36) 11/06/24 05:04
ALT 11 U/L (0-35) 11/06/24 05:04
Alkaline Phosphatase 62 U/L (38-126) 11/06/24 05:04
Total Protein 5.7 g/dl (6.3-8.2) L 11/06/24 05:04
Albumin 3.5 g/dl (3.5-5.0) 11/06/24 05:04
Physical Exam
-
Gen: NAD
Abd: soft, severe ttp to RUQ
Patient has a phan catheter: No
Patient has a central line: No
--- NOTE | 2024-11-06 12:37 | CM ---
Surgery involved .Pt declined surgery at this time.
IV antibiotics.
Offered VN she declined need.
PLAN Home no needs
--- NOTE | 2024-11-06 14:50 | PTCARENOTE ---
11/06/2024 DIABETES EDUCATION
I met with Angie to review diabetes management, she has T2D with an HbA1c of 7%. She states previously her HbA1c was 5.8%.
She does not take medication nor does she check her glucose at home. 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
I educated on physiology of T2D, organ damage, managing with medications, monitoring BG, nutrition, activity, sleep and managing stress. Discussed nutrition, she likes to bake sweets and loves wise; states she is not permitted to have while
inpatient. Discussed low carb options and ADA Plate Method infographic.
I reinforced signs of hyperglycemia, hypoglycemia and hypoglycemia protocol; BS parameters and recommended HbA1c goals.
I educated and reviewed using Contour Next glucometer, member acknowledged understanding. She declined a self demonstration with glucometer, but was agreeable to me performing glucose check. Provided her with a Contour Next sample kit and told her.
Provided written material on diabetes management, signs of hyper and hypoglycemia, glucose tracker, medic alert bracelet and outpatient DSME program.
Provided list of endocrinologists if desired, to contact insurance company to verify in network status. Patient verbalized understanding.
[2024-11-06 15:11] VITALS: BP 127/73
[2024-11-06 16:38] LABS: Glucose - Point of Care 108 mg/dl (70-99)
[2024-11-06] MEDS: TORADOL 30 MG IV (17:34)
[2024-11-06 21:35] LABS: Glucose - Point of Care 126 mg/dl (70-99)
[2024-11-06 23:15] VITALS: BP 108/62
[2024-11-07] MEDS: OFIRMEV 100 IV ×3 (04:13→21:13)
[2024-11-07] MEDS: STERILE WATER FOR INJECTION 10 ML IV ×2 (05:05→16:04)
[2024-11-07] MEDS: CEFOTAN 2000 MG IV ×2 (05:05→16:03)
--- NOTE | 2024-11-07 07:16 | W.PN.HOSP.TC ---
Today's Communication/Plan
-
see a/p
Assessment / Plan
Assessment / Plan
Physical Exam
General: No acute distress, appears comfortable at this time, ambulatory without need for assist device
HEENT: NormoCephalic, Anicteric, Moist mucous membranes, [place] Conjunctivae and No Ptosis
Respiratory: Clear; No Wheezes, Rales or Rhonchi
Cardiac: S1/S2 and Regular Rhythm; No Murmur, Rub, Gallop or Peripheral Edema
GI: Soft, Non Distended, Normal Bowel Sounds, Tender (Right upper quadrant, positive Wilson sign) and No Hepatosplenomegaly
Musculoskeletal: No Clubbing, No Cyanosis and No Edema
Skin: Warm and Dry; No Rash
Neuro: AO x 3 conversant coherent
Psych: Calm
#Acute Calculous Cholecystitis
-Consult GI appreciated
-Consult general surgery appreciated patient declining sx at this time, cont conservative mgmt at this time, abx Cefotetan 2g Q12H
- Low fat diet as tolerated
- IV NSS
- prn Toradol dilaudid
-IV tylenol as per surgery
- prn Zofran
Abdominal ultrasound abdomen complete:
1. Cholelithiasis no abnormal gallbladder wall thickening
2. Dilation of the common bile duct measuring 9 mm no duct filling defects
3. Question complex cyst right kidney .
Abd MRI appreciated:
1. Acute Calculous Cholecystitis
2. Mild extrahepatic biliary dilatation.
3. Tiny pancreatic cysts measuring up to 3 mm in size.
4. Small bilateral renal cysts.
5. Small hiatal hernia.
#Acute hyperglycemia
#Mild Diabetes
HgbA1c 7.0
Sliding scale
Diabetic Education provided
carb control diet
#Menopause on hormonal patch
- Patient is on estradiol/norethindrone transdermal patch once a week on
DVT prophylaxis
SCDs
Full code
discussed with patient and patient's Noe
I spent a total of 45 minutes with the patient or on the floor. More than 50% of this time involved counseling and coordination of care.
Anticipated Discharge: 24 - 48 hours
Subjective/Interval History
-
Date of Service: November 07, 2024
no acute distress though pain remains significant consistently requiring IV pain meds.
Objective Data
-
Labs:
Laboratory Results
11/07/24
06:00
WBC Pending
Hgb Pending
Hct Pending
Plt Count Pending
Sodium Pending
Potassium Pending
Chloride Pending
Carbon Dioxide Pending
BUN Pending
Creatinine Pending
Glucose Pending
Calcium Pending
Total Bilirubin Pending
AST Pending
ALT Pending
Alkaline Phosphatase Pending
Vital Signs:
Vital Signs
Temp Pulse Resp BP Pulse Ox
97.5 F 71 19 108/62 93
11/06/24 23:15 11/06/24 23:15 11/06/24 23:15 11/06/24 23:15 11/06/24 23:15
I&O
11/06/24 11/07/24 11/08/24
06:59 06:59 06:59
Intake Total 1800 / 1800 0 / 3260
Balance 1800 / 1800 3259 / 0
[2024-11-07 07:41] VITALS: BP 130/74
[2024-11-07 07:51] LABS: Glucose - Point of Care 115 mg/dl (70-99)
[2024-11-07 08:08] LABS: % Basophils 0.4 % (0-2); % Eosinophils 2.8 % (0-6); % Immature Granulocytes 0.4 % (0-0.5); % Lymphocytes 16.5 % (20.5-51.1); % Neutrophils 71.9 % (42.2-75.2); Absolute Eosinophils 0.3 10^3/uL (0-0.7); Absolute Lymphocytes 1.5 10^3/uL (1.2-3.4); Absolute Monocytes 0.7 10^3/uL (0.1-0.6); Absolute Neutrophils 6.5 10^3/uL (1.4-6.5); Hematocrit 38.3 % (37.0-47.0); Hemoglobin 13.5 g/dL (12.0-16.0); Mean Corp Hgb Conc. 35.2 g/dL (33.0-37.0); Mean Corpuscular Hgb 31.2 pg (27.0-31.0); Mean Corpuscular Volume 88.5 fL (81.0-99.0); Mean Platelet Volume 9.9 fL (7.4-10.4); Nucleated Red Blood Cells % 0 %; Platelet Count 227 10^3/uL (130-400); Red Blood Cell Count 4.33 10^6/uL (4.20-5.40); Red Cell Dist. Width 12.4 % (11.5-14.5)
[2024-11-07 08:44] LABS: ALT (SGPT) 13 U/L (0-35); AST (SGOT) 19 U/L (14-36); Albumin 3.3 g/dl (3.5-5.0); Alkaline Phosphatase 64 U/L (38-126); Blood Urea Nitrogen 6 mg/dl (7-17); Calcium 8.5 mg/dl (8.4-10.2); Carbon Dioxide 23 mmol/L (22-30); Chloride 109 mmol/L (98-107); Estimated Creatinine Clearance 88 ml/min; Glucose 112 mg/dl (70-99); Phosphorus 2.4 mg/dl (2.5-4.5); Potassium 3.8 mmol/L (3.5-5.1); Sodium 142 mmol/L (135-145); Total Bilirubin 0.6 mg/dl (0.2-1.3); Total Protein 5.8 g/dl (6.3-8.2); eGFR > 60.00
[2024-11-07] MEDS: NSS 1000 IV ×2 (09:39→21:12)
[2024-11-07] MEDS: TORADOL 30 MG IV (09:39)
[2024-11-07] MEDS: SENOKOT-S 1 TABLET PO (11:07)
[2024-11-07] MEDS: AUGMENTIN 875 MG/125 MG 1 TABLET PO (11:34)
[2024-11-07 11:35] LABS: Glucose - Point of Care 131 mg/dl (70-99)
[2024-11-07] MEDS: DILAUDID 0.5 MG IV ×3 (13:14→19:55)
[2024-11-07] MEDS: ZOFRAN 4 MG IV ×2 (13:14→21:26)
--- NOTE | 2024-11-07 14:40 | PTCARENOTE ---
Pt. continues to complain of 8/10 pain to her right upper quadrant. PRN pain medications given as well as Zofran from nausea. Pt. states she is not getting any relief from pain medications. IVF running. Will update .
[2024-11-07 15:25] VITALS: BP 142/76
[2024-11-07] MEDS: NSS (PRESERVATIVE FREE) 10 ML IV (16:03)
[2024-11-07] MEDS: PROTONIX IV 40 MG IV (16:04)
[2024-11-07 16:28] LABS: Glucose - Point of Care 122 mg/dl (70-99)
[2024-11-07] MEDS: FLORASTOR 250 MG PO (19:49)
[2024-11-07 20:31] LABS: Glucose - Point of Care 131 mg/dl (70-99)
[2024-11-08 00:01] VITALS: BP 121/56
[2024-11-08] MEDS: SENOKOT-S 1 TABLET PO (02:31)
[2024-11-08] MEDS: OFIRMEV 100 IV ×2 (02:31→08:55)
[2024-11-08] MEDS: CEFOTAN 2000 MG IV (03:32)
[2024-11-08] MEDS: STERILE WATER FOR INJECTION 10 ML IV (03:32)
[2024-11-08] MEDS: DILAUDID 0.5 MG IV ×3 (03:43→19:50)
[2024-11-08 06:13] LABS: % Basophils 0.3 % (0-2); % Immature Granulocytes 0.3 % (0-0.5); % Lymphocytes 13.4 % (20.5-51.1); % Monocytes 8.3 % (1.7-9.3); % Neutrophils 75.7 % (42.2-75.2); Absolute Eosinophils 0.1 10^3/uL (0-0.7); Absolute Lymphocytes 0.8 10^3/uL (1.2-3.4); Absolute Monocytes 0.5 10^3/uL (0.1-0.6); Absolute Neutrophils 4.7 10^3/uL (1.4-6.5); Hematocrit 31.7 % (37.0-47.0); Hemoglobin 11.2 g/dL (12.0-16.0); Mean Corp Hgb Conc. 35.3 g/dL (33.0-37.0); Mean Corpuscular Hgb 31.4 pg (27.0-31.0); Mean Corpuscular Volume 88.8 fL (81.0-99.0); Mean Platelet Volume 10.3 fL (7.4-10.4); Nucleated Red Blood Cells % 0 %; Platelet Count 225 10^3/uL (130-400); Red Blood Cell Count 3.57 10^6/uL (4.20-5.40); Red Cell Dist. Width 12.5 % (11.5-14.5); White Blood Cell Count 6.1 10^3/uL (4.8-10.8)
[2024-11-08 06:46] LABS: ALT (SGPT) 211 U/L (0-35); AST (SGOT) 209 U/L (14-36); Albumin 2.7 g/dl (3.5-5.0); Alkaline Phosphatase 331 U/L (38-126); Blood Urea Nitrogen 3 mg/dl (7-17); Calcium 8.1 mg/dl (8.4-10.2); Carbon Dioxide 22 mmol/L (22-30); Chloride 107 mmol/L (98-107); Estimated Creatinine Clearance 88 ml/min; Glucose 115 mg/dl (70-99); Magnesium 1.8 mg/dl (1.6-2.3); Phosphorus 2.9 mg/dl (2.5-4.5); Potassium 3.5 mmol/L (3.5-5.1); Sodium 139 mmol/L (135-145); Total Protein 4.9 g/dl (6.3-8.2); eGFR > 60.00
--- NOTE | 2024-11-08 07:24 | PTCARENOTE ---
Pt. had multiple episodes of vomiting overnight. Pt. says she has no appetite and complains of 8/10-10/10 continuous pain to RUQ even with prns. 3 small formed BM's overnight after prn senokot.
[2024-11-08 07:30] VITALS: BP 121/47
--- NOTE | 2024-11-08 07:49 | W.PN.HOSP.TC ---
Today's Communication/Plan
-
see a/p
Assessment / Plan
Assessment / Plan
Physical Exam
General: No acute distress, appears comfortable at this time, ambulatory without need for assist device
HEENT: NormoCephalic, Anicteric, Moist mucous membranes, [place] Conjunctivae and No Ptosis
Respiratory: Clear; No Wheezes, Rales or Rhonchi
Cardiac: S1/S2 and Regular Rhythm; No Murmur, Rub, Gallop or Peripheral Edema
GI: Soft, Non Distended, Normal Bowel Sounds, Tender (Right upper quadrant, positive Wilson sign) and No Hepatosplenomegaly
Musculoskeletal: No Clubbing, No Cyanosis and No Edema
Skin: Warm and Dry; No Rash
Neuro: AO x 3 conversant coherent
Psych: Calm
#Acute Calculous Cholecystitis
-Consult GI appreciated
-Consult general surgery appreciated patient declined, cont conservative mgmt, initial abx Cefotetan 2g Q12H later switched to Zosyn
- With worsening pain, LFTs, and repeat MRCP showing new biliary obstruction d/t stone, per luis tube was recommended but patient also declined, GI discussed ERCP to which patient reported that she would consider over the weekend.
- NPO except meds ok to advance as tolerated to Low fat
- IV NSS
- prn oxycodone dilaudid
-IV tylenol scheduled
- prn Zofran
Abdominal ultrasound abdomen complete:
1. Cholelithiasis no abnormal gallbladder wall thickening
2. Dilation of the common bile duct measuring 9 mm no duct filling defects
3. Question complex cyst right kidney .
Abd MRI appreciated:
1. Acute Calculous Cholecystitis
2. Mild extrahepatic biliary dilatation.
3. Tiny pancreatic cysts measuring up to 3 mm in size.
4. Small bilateral renal cysts.
5. Small hiatal hernia.
Later Repeat MRCP noted:
1. The common bile duct appears dilated measuring 1.1 cm with a 3.5 mm stone distally consistent with choledocholithiasis.
2. There is persistent gallbladder wall thickening with surrounding inflammatory changes consistent with ongoing inflammation/cholecystitis.
3. Small bilateral pleural effusions.
#Acute hyperglycemia
#Mild Diabetes
HgbA1c 7.0
Sliding scale
Diabetic Education provided
carb control diet
#Menopause on hormonal patch
- Patient is on estradiol/norethindrone transdermal patch once a week on
DVT prophylaxis
SCDs
Full code
discussed with patient and patient's Noe
I spent a total of 45 minutes with the patient or on the floor. More than 50% of this time involved counseling and coordination of care.
Anticipated Discharge: 24 - 48 hours
Subjective/Interval History
-
Date of Service: November 08, 2024
Increased pain worsening LFTs. Noted surgery and GI recommended per luis tube, however patient refusing.
Objective Data
-
Labs:
Laboratory Results
11/08/24
05:15
WBC 6.1
Hgb 11.2 L
Hct 31.7 L
Plt Count 225
Sodium 139
Potassium 3.5
Chloride 107
Carbon Dioxide 22
BUN 3 L
Creatinine 0.4 L
Glucose 115 H
Calcium 8.1 L
Total Bilirubin 2.0 H D
AST 209 H
ALT 211 H
Alkaline Phosphatase 331 H
Vital Signs:
Vital Signs
Temp Pulse Resp BP Pulse Ox
97.8 F 71 18 121/56 96
11/08/24 00:01 11/08/24 00:01 11/08/24 00:01 11/08/24 00:01 11/08/24 00:01
I&O
11/07/24 11/08/24 11/09/24
06:59 06:59 06:59
Intake Total 3260 / 3260 960 / 1760 800 / 800
Balance 0 / 3260 960 / 1760 800 / 800
[2024-11-08 08:04] LABS: Glucose - Point of Care 100 mg/dl (70-99)
[2024-11-08] MEDS: FLORASTOR 250 MG PO ×2 (08:51→22:15)
[2024-11-08] MEDS: PROTONIX IV 40 MG IV (08:51)
[2024-11-08] MEDS: NSS (PRESERVATIVE FREE) 10 ML IV (08:52)
[2024-11-08] MEDS: NSS 1000 IV ×2 (08:55→19:49)
--- NOTE | 2024-11-08 09:37 | W.PN.GS2 ---
Addendum entered and electronically signed by Rigoberto Valdovinos MD 11/08/24 10:31:
I saw and examined the patient.
The Rapid Transit Operator's note was reviewed and I agree with the note.
Comment: Pain slightly improved. N/v with PO intake yesterday. No appetite today. AFVSS, WBC normalized. Tbili elevated today to 2. Advised perc luis tube, pt not presently agreeable and prefers abx alone. Again explained she is unlikely to
improve with abx alone. She verbalized understanding. Will follow peripherally
Original Note:
Today's Communication / Plan
-
Perc luis tube if agreeable
Assessment / Plan
-
59-year-old female who presents with her second bout of acute cholecystitis confirmed on MRI without choledocholithiasis noted at that time. She declined surgery on admission for the next subsequent days as well. Being followed with nonoperative
measures including antibiotics and initial bowel rest, diet was advanced but not well tolerated
Unable to tolerate PO intake without worsening pain/nausea/vomiting. Notes anorexia today.
AFVSS
No leukocytosis, LFTs initially normal now rising
Plan:
Given persistent symptoms and the degree of inflammation that is likely present surrounding her gallbladder, would recommend a cholecystostomy tube for management. She notes that she will consider this but is not readily agreeable to proceeding. She
will notify care team if she decides to proceed with perc luis tube, but hesitant at this time.
Gastroenterology consulted to evaluate as well
Continue ABX
Antiemetics and analgesics prn
She wishes to maintain NPO at this time, ok for clears and dietary advancement as tolerated from surgical standpoint
Subjective Data
-
Date of Service: November 08, 2024
Patient seen and examined at bedside with Dr. Valdovinos. Pain overall a bit better unless she eats. Vomiting after eating yesterday. Denies active nausea now. Reports anorexia.
Objective Data
-
Intake and Output
11/07/24 11/08/24 11/09/24
06:59 06:59 06:59
Intake Total 3260 / 3260 960 / 1760 800 / 800
Balance 3260 / 3260 960 / 1760 800 / 800
Intake:
Oral fluids 2160 / 2160 960 / 1760 800 / 800
IV fluids (Total) 1050 / 1050
IV piggybacks 50 / 50
Other:
Number of approximated MODERATE 1 3 3
amounts of urine
Vital Signs
Temp Pulse Resp BP Pulse Ox
98.0 F 72 16 121/47 94
11/08/24 07:30 11/08/24 07:30 11/08/24 07:30 11/08/24 07:30 11/08/24 07:30
Lab Results
11/08/24 05:15
11/08/24 05:15
Calcium 8.1 mg/dl (8.4-10.2) L 11/08/24 05:15
Phosphorus 2.9 mg/dl (2.5-4.5) 11/08/24 05:15
Magnesium 1.8 mg/dl (1.6-2.3) 11/08/24 05:15
Total Bilirubin 2.0 mg/dl (0.2-1.3) H D 11/08/24 05:15
AST 209 U/L (14-36) H 11/08/24 05:15
ALT 211 U/L (0-35) H 11/08/24 05:15
Alkaline Phosphatase 331 U/L (38-126) H 11/08/24 05:15
Total Protein 4.9 g/dl (6.3-8.2) L 11/08/24 05:15
Albumin 2.7 g/dl (3.5-5.0) L 11/08/24 05:15
Physical Exam
-
Gen: ill appearing
Abd: soft, ND, ttp to RUQ
Patient has a phan catheter: No
Patient has a central line: No
--- NOTE | 2024-11-08 10:16 | CON.GI ---
Addendum entered and electronically signed by Deborah Cramer DO 11/08/24 13:21:
Patient seen and examined independently of ADELINA. I agree with her note with my additions below
Angie is a 59-year-old female with history of acute cholecystitis with sepsis treated in March 2024 who refused cholecystectomy at that time who comes back in with a similar picture with acute onset nausea vomiting abdominal pain with normal LFTs
initially. Patient refused cholecystostomy tube. Last night she had increased abdominal pain nausea and vomiting and on labs this morning she had worsening of her liver chemistries with an elevated total bilirubin of 2, AST 209, ALT 211, alkaline
phosphatase 331.
I reviewed her most recent imaging including the initial ultrasound and MRI which showed a dilated, bile duct but no choledocholithiasis in the setting of normal LFTs that makes sense but now her MRCP was done she does have a small 3.5 mm distal
common bile duct stone with an 11 mm, bile duct. Continues to have gallstones and gall bladder wall thickening with some sludge. Her pancreas appears atrophic with a normal pancreatic duct size.
I had a long discussion with her the complications of her not proceeding with any intervention including sepsis, pancreatitis, cholangitis and persistent hospital stay. She refuses cholecystectomy still but will think about it. I also relayed to
her with each episode of cholecystitis she is getting more more inflammation and likely scar tissue which would lead to a more complicated and longer surgery.
I did discuss it also with general surgery who is spoken to her many times and she continues to refuse.
For now, continue antibiotics and monitor liver chemistries
I also discussed ERCP with her which she will consider depending on how the weekend goes
Original Note:
Consultation
-
Date/Time Consultation Requested: 11/08/24 0745
Date/Time Consultation Performed: 11/08/24 1000
Requesting Provider: Dr. Howard
Performing Provider: Dr. Cramer/ADELINA Serrano
Reason for Consultation: acute cholecystitis
Medical History
Chief Complaint / HPI
Chief Complaint: RUQ pain
History of Present Illness:
59-year-old female with past medical history of cholelithiasis with history of cholecystitis with sepsis treated at [facility] (March 2024) and per patient states was a '2-month recovery'. Who declined surgery at that
time no other significant past medical history except for colon polyps presents to the emergency room after acute onset of severe right upper quadrant pain starting at 3 AM Monday morning after eating at a [place] buffet on Monday night. The
patient states that she developed acute onset of nausea, vomiting with right upper quadrant pain radiating through to her back. She states this was similar to her prior episode of acute cholecystitis. The patient was diagnosed with acute
cholecystitis. She was started on IV antibiotics. She was offered surgery but has since adamantly declined. She was offered cholecystostomy tube. She is still declining. We are asked to evaluate for rising LFTs and persistent acute
cholecystitis. Patient is currently drinking broth. She states that 'I survived sepsis back in March I can do it again'. ' I Have my graduation on November 26 to get to' the patient did have MRI of the abdomen with without contrast of the
performed on 11/04/2024 that showed acute calculus cystitis. Mild extrahepatic biliary dilatation. No evidence for intraluminal filling defect in the common bile duct to suggest choledocholithiasis. The patient remained NPO. She was unable to
tolerate p.o. intake without worsening pain, nausea and vomiting. Today her total bilirubin increased to 2.0, AST to 209, ALT to 211 and alk phos to 331. Discussed with patient. Patient was already seen by surgery who again discussed with her.
She is again still refusing intervention other than antibiotics.
Past Medical History
Past Medical History: Other (Cholelithiasis, acute cholecystitis with sepsis (03/2024))
Past Surgical History: Gynecological ()
Social History
Tobacco: Non-Smoker
Alcohol: None
Drug: None
Personal:
Living: With Family
Employment: Employed
Family History
Family History: Other (Family history of gastrointestinal malignancy or IBD)
Allergies / Home Medications
Allergy/AdvReac Type Severity Reaction Status Date / Time
No Known Allergies Allergy Unverified 11/04/24 09:03
�Medication �Instructions �Recorded
Combipatch 1 patch topical TH 11/04/24
ascorbic acid (vitamin C) 500 mg 500 mg PO DAILY Supplement 11/04/24
tablet (Vitamin C)
cholecalciferol (vitamin D3) 25 25 mcg PO DAILY Supplement 11/04/24
mcg (1,000 unit) tablet (Vitamin
D3)
[id number]-fish oil-vit D3 300 1 cap PO DAILY Supplement 11/04/24
mg-1,000 mg-1,000 unit capsule
(Fish Oil-Vit D3)
blood sugar diagnostic (Contour #200 ea 11/06/24
Next Test Strips)
lancets 21 gauge (Color Lancets) #200 ea 11/06/24
Review of Systems
-
All other systems: A 12 pt ROS was Negative except as stated above in HPI
Vital Signs
Temp Pulse Resp BP Pulse Ox
98.0 F 72 16 121/47 94
11/08/24 07:30 11/08/24 07:30 11/08/24 07:30 11/08/24 07:30 11/08/24 07:30
Physical Exam
Exam
General: No Apparent Distress
HEENT: Anicteric
Respiratory: Clear
GI: Soft, Non Distended, Normal Bowel Sounds and Tender (Right upper quadrant)
Skin: Warm and Dry
Neuro: AO x 3
Psych: Calm
Results
WBC 6.1 10^3/uL (4.8-10.8) 11/08/24 05:15
Hgb 11.2 g/dL (12.0-16.0) L 11/08/24 05:15
Hct 31.7 % (37.0-47.0) L 11/08/24 05:15
MCV 88.8 fL (81.0-99.0) 11/08/24 05:15
Plt Count 225 10^3/uL (130-400) 11/08/24 05:15
Absolute Neuts (auto) 4.7 10^3/uL (1.4-6.5) 11/08/24 05:15
Sodium 139 mmol/L (135-145) 11/08/24 05:15
Potassium 3.5 mmol/L (3.5-5.1) 11/08/24 05:15
Chloride 107 mmol/L (98-107) 11/08/24 05:15
Carbon Dioxide 22 mmol/L (22-30) 11/08/24 05:15
BUN 3 mg/dl (7-17) L 11/08/24 05:15
Creatinine 0.4 mg/dL (0.6-1.0) L 11/08/24 05:15
Calcium 8.1 mg/dl (8.4-10.2) L 11/08/24 05:15
Total Bilirubin 2.0 mg/dl (0.2-1.3) H D 11/08/24 05:15
AST 209 U/L (14-36) H 11/08/24 05:15
ALT 211 U/L (0-35) H 11/08/24 05:15
Alkaline Phosphatase 331 U/L (38-126) H 11/08/24 05:15
Lipase 87 U/L (23-300) 11/04/24 10:24
Diagnostic Image Results:
Prior GI Procedures:
EGD: Approximately [address] Rose Escobar. Per patient 'normal'. Records unavailable to us
Colonoscopy: Approximately [address] Rose Escobar, per patient 'colon polyps in my rectum'. Records unavailable to us. She states she is due for repeat colonoscopy at this time
Assessment / Plan
-
59-year-old female with past medical history of cholelithiasis with history of cholecystitis with sepsis treated at [facility] (March 2024) and per patient states was a '2-month recovery'. Who declined surgery at that
time no other significant past medical history except for colon polyps presents to the emergency room after acute onset of severe right upper quadrant pain starting at 3 AM Monday morning after eating at a [place] buffet on Monday night. The
patient states that she developed acute onset of nausea, vomiting with right upper quadrant pain radiating through to her back. She states this was similar to her prior episode of acute cholecystitis. The patient was diagnosed with acute
cholecystitis. She was started on IV antibiotics. She was offered surgery but has since adamantly declined. She was offered cholecystostomy tube. She is still declining. We are asked to evaluate for rising LFTs and persistent acute
cholecystitis.
Impression:
-Acute cholecystitis
-Hx colon polyps
Plan:
-Continue Abx as per surgery
-Recommended acute cholecystostomy tube, patient declining
-MRCP ordered by IM
-follow up with Dr. Escobar as outpatient.
-
-
Thank you for consultation and allowing me to participate in the patient's care. Please call the health information tech GI physician during the after hours with any questions or concerns.
[2024-11-08 11:37] LABS: Direct Bilirubin 1.6 mg/dl (0.0-0.4)
[2024-11-08 12:33] LABS: Glucose - Point of Care 186 mg/dl (70-99)
[2024-11-08] MEDS: ZOSYN 50 IV ×2 (12:51→17:28)
[2024-11-08 15:29] VITALS: BP 144/67
[2024-11-08 16:59] LABS: Glucose - Point of Care 160 mg/dl (70-99)
[2024-11-08] MEDS: ROXICODONE 5 MG PO (17:28)
[2024-11-08] MEDS: ZOFRAN 4 MG IV (19:50)
[2024-11-08 21:19] LABS: Glucose - Point of Care 128 mg/dl (70-99)
[2024-11-08 23:41] VITALS: BP 157/85
[2024-11-08 23:53] LABS: Glucose - Point of Care 123 mg/dl (70-99)
[2024-11-09] MEDS: NSS 1000 IV (01:10)
[2024-11-09] MEDS: ZOSYN 50 IV ×4 (01:10→17:21)
[2024-11-09] MEDS: DILAUDID 0.5 MG IV ×3 (01:17→18:43)
[2024-11-09 06:05] LABS: Hematocrit 31.5 % (37.0-47.0); Hemoglobin 11.6 g/dL (12.0-16.0); Mean Corp Hgb Conc. 36.8 g/dL (33.0-37.0); Mean Corpuscular Hgb 31.6 pg (27.0-31.0); Mean Corpuscular Volume 85.8 fL (81.0-99.0); Platelet Count 240 10^3/uL (130-400); Red Blood Cell Count 3.67 10^6/uL (4.20-5.40); Red Cell Dist. Width 12.8 % (11.5-14.5); White Blood Cell Count 5.6 10^3/uL (4.8-10.8)
[2024-11-09 06:16] LABS: Glucose - Point of Care 112 mg/dl (70-99)
[2024-11-09 06:21] LABS: ALT (SGPT) 318 U/L (0-35); AST (SGOT) 255 U/L (14-36); Albumin 2.8 g/dl (3.5-5.0); Alkaline Phosphatase 362 U/L (38-126); Blood Urea Nitrogen < 2 mg/dl (7-17); Calcium 8.4 mg/dl (8.4-10.2); Carbon Dioxide 27 mmol/L (22-30); Chloride 104 mmol/L (98-107); Estimated Creatinine Clearance 88 ml/min; Glucose 121 mg/dl (70-99); Potassium 3.3 mmol/L (3.5-5.1); Sodium 138 mmol/L (135-145); Total Bilirubin 2.8 mg/dl (0.2-1.3); eGFR > 60.00
--- NOTE | 2024-11-09 07:12 | W.PN.HOSP.TC ---
Today's Communication/Plan
-
see a/p
Assessment / Plan
Assessment / Plan
Physical Exam
General: No acute distress, appears comfortable at this time, ambulatory without need for assist device
HEENT: NormoCephalic, Anicteric, Moist mucous membranes, [place] Conjunctivae and No Ptosis
Respiratory: Clear; No Wheezes, Rales or Rhonchi
Cardiac: S1/S2 and Regular Rhythm; No Murmur, Rub, Gallop or Peripheral Edema
GI: Soft, Non Distended, Normal Bowel Sounds, Tender (Right upper quadrant, positive Wilson sign) and No Hepatosplenomegaly
Musculoskeletal: No Clubbing, No Cyanosis and No Edema
Skin: Warm and Dry; No Rash
Neuro: AO x 3 conversant coherent
Psych: Calm
#Acute Calculous Cholecystitis
#choledocholithiasis
-Consult GI appreciated
-Consult general surgery appreciated patient declined cholecystectomy, cont conservative mgmt, initial abx Cefotetan 2g Q12H later switched to Zosyn
-Probiotic
- With worsening pain, LFTs, and repeat MRCP showing new biliary obstruction d/t stone, per luis tube was recommended but patient also declined, GI discussed ERCP pt consented for Monday
- NPO except meds ok to advance as tolerated to clear liquid, eventual NPO after midnight for ERCP Monday
- IVF LR
- prn oxycodone dilaudid
-IV toradol scheduled
- prn Zofran
Abdominal ultrasound abdomen complete:
1. Cholelithiasis no abnormal gallbladder wall thickening
2. Dilation of the common bile duct measuring 9 mm no duct filling defects
3. Question complex cyst right kidney .
Abd MRI appreciated:
1. Acute Calculous Cholecystitis
2. Mild extrahepatic biliary dilatation.
3. Tiny pancreatic cysts measuring up to 3 mm in size.
4. Small bilateral renal cysts.
5. Small hiatal hernia.
Later Repeat MRCP noted:
1. The common bile duct appears dilated measuring 1.1 cm with a 3.5 mm stone distally consistent with choledocholithiasis.
2. There is persistent gallbladder wall thickening with surrounding inflammatory changes consistent with ongoing inflammation/cholecystitis.
3. Small bilateral pleural effusions.
#Acute hyperglycemia
#Mild Diabetes
HgbA1c 7.0
Sliding scale
Diabetic Education provided
carb control diet
#Hypokalemia
Monitor and replete as necessary
#Menopause on hormonal patch
- Patient is on estradiol/norethindrone transdermal patch once a week on
DVT prophylaxis
SCDs
Full code
discussed with patient and patient's Noe
I spent a total of 50 minutes with the patient or on the floor. More than 50% of this time involved counseling and coordination of care.
Anticipated Discharge: > 48 hours
Subjective/Interval History
-
Date of Service: November 09, 2024
Pain persists, intermittent nausea, poor appetite. Discussed recommendation per luis tube, patient declines.
Objective Data
-
Labs:
Laboratory Results
11/09/24
05:14
WBC 5.6
Hgb 11.6 L
Hct 31.5 L
Plt Count 240
Sodium 138
Potassium 3.3 L
Chloride 104
Carbon Dioxide 27
BUN < 2 L
Creatinine 0.5 L
Glucose 121 H
Calcium 8.4
Total Bilirubin 2.8 H
AST 255 H
ALT 318 H
Alkaline Phosphatase 362 H
Vital Signs:
Vital Signs
Temp Pulse Resp BP Pulse Ox
97.7 F 70 18 157/85 93
11/08/24 23:41 11/08/24 23:41 11/08/24 23:41 11/08/24 23:41 11/08/24 23:41
I&O
11/08/24 11/09/24 11/10/24
06:59 06:59 06:59
Intake Total 960 / 1760 1640 / 1640
Balance 960 / 1760 1640 / 1640
[2024-11-09 07:30] VITALS: BP 150/82
[2024-11-09] MEDS: FLORASTOR 250 MG PO ×2 (08:40→22:02)
[2024-11-09] MEDS: PROTONIX IV 40 MG IV (08:40)
[2024-11-09] MEDS: NSS (PRESERVATIVE FREE) 10 ML IV (08:41)
[2024-11-09] MEDS: LR 1000 IV ×2 (08:48→22:02)
[2024-11-09] MEDS: KCL 270 MEQ IV (11:05)
[2024-11-09] MEDS: TORADOL 15 MG IV ×2 (11:47→17:21)
[2024-11-09 12:18] LABS: Glucose - Point of Care 207 mg/dl (70-99)
[2024-11-09] MEDS: NOVOLOG FLEXPEN-LOW RESISTANCE 2 UNITS SC (12:22)
--- NOTE | 2024-11-09 12:56 | W.PN.GI.CBS2 ---
Today's Communication / Plan
-
-- antibx pain control, NPO monday night for ERCP on Monday
Assessment / Plan
-
59-year-old female with past medical history of cholelithiasis with history of cholecystitis with sepsis treated at [facility] (March 2024) and per patient states was a '2-month recovery'. Who declined surgery at that
time no other significant past medical history except for colon polyps presents to the emergency room after acute onset of severe right upper quadrant pain starting at 3 AM Monday morning after eating at a [place] buffet on Monday. The
patient states that she developed acute onset of nausea, vomiting with right upper quadrant pain radiating through to her back. She states this was similar to her prior episode of acute cholecystitis. The patient was diagnosed with acute
cholecystitis. She was started on IV antibiotics. She was offered surgery but has since adamantly declined. She was offered cholecystostomy tube. She is still declining. We are asked to evaluate for rising LFTs and persistent acute
cholecystitis.
Impression:
-Acute cholecystitis
-Hx colon polyps
Plan:
-Continue Abx as per surgery
-Recommended acute cholecystostomy tube, patient declining
11/08/2024 MRCP shows dilated CBD 11mm with 3.5mm Distal CBD stone
11/09/24 worsening liver chemistries. no fever, leukocytosis on zosyn. no blood cultures drawn
-- had long conversation with patient and her - they are currently agreeable to have an ERCP on Monday and considering luis tube
Subjective
Subjective
Date of Service: November 09, 2024
patient requiring pain meds around the clock. Tells me she's fine
Objective
Data Reviewed
Laboratory Data:
Laboratory Results
11/09/24 05:14
11/09/24 05:14
Laboratory Results
Phosphorus 2.9 mg/dl (2.5-4.5) 11/08/24 05:15
Magnesium 1.8 mg/dl (1.6-2.3) 11/08/24 05:15
Total Bilirubin 2.8 mg/dl (0.2-1.3) H 11/09/24 05:14
AST 255 U/L (14-36) H 11/09/24 05:14
ALT 318 U/L (0-35) H 11/09/24 05:14
Alkaline Phosphatase 362 U/L (38-126) H 11/09/24 05:14
Lipase 87 U/L (23-300) 11/04/24 10:24
Vital Signs and I&O:
Vital Signs
Temp Pulse Resp BP Pulse Ox
98.0 F 69 16 150/82 96
11/09/24 07:30 11/09/24 07:30 11/09/24 07:30 11/09/24 07:30 11/09/24 09:50
I&O
11/08/24 11/09/24 11/10/24
06:59 06:59 06:59
Intake Total 960 / 1760 1640 / 1640
Balance 960 / 1760 1640 / 1640
Physical Exam
Physical Exam
HEENT: Anicteric
GI: Soft and Tender
Extremities: No Edema
Neuro: Non Focal
[2024-11-09 15:30] VITALS: BP 149/80
[2024-11-09 17:18] LABS: Glucose - Point of Care 166 mg/dl (70-99)
[2024-11-09] MEDS: NOVOLOG FLEXPEN-LOW RESISTANCE 1 UNITS SC (17:20)
[2024-11-09 21:58] LABS: Glucose - Point of Care 175 mg/dl (70-99)
[2024-11-09 23:00] VITALS: BP 148/70
[2024-11-10] MEDS: TORADOL 15 MG IV ×3 (00:35→17:18)
[2024-11-10] MEDS: ZOSYN 50 IV ×4 (00:36→17:18)
[2024-11-10] MEDS: DILAUDID 0.5 MG IV (00:36)
[2024-11-10] MEDS: FLUSH (NSS) 3 FLUSH IV (00:36)
[2024-11-10] MEDS: ZOFRAN 4 MG IV (01:37)
[2024-11-10] MEDS: TORADOL IV (06:08)
[2024-11-10 06:11] LABS: Hematocrit 32.4 % (37.0-47.0); Hemoglobin 11.8 g/dL (12.0-16.0); Mean Corp Hgb Conc. 36.4 g/dL (33.0-37.0); Mean Corpuscular Hgb 31.1 pg (27.0-31.0); Mean Corpuscular Volume 85.5 fL (81.0-99.0); Mean Platelet Volume 9.7 fL (7.4-10.4); Platelet Count 259 10^3/uL (130-400); Red Blood Cell Count 3.79 10^6/uL (4.20-5.40); White Blood Cell Count 5.2 10^3/uL (4.8-10.8)
[2024-11-10 06:16] LABS: INR 1.13; PT 14.8 Sec (11.4-14.6)
[2024-11-10 06:17] LABS: APTT 30.9 Sec (23.4-35.0)
[2024-11-10 06:38] LABS: ALT (SGPT) 354 U/L (0-35); AST (SGOT) 185 U/L (14-36); Alkaline Phosphatase 370 U/L (38-126); Blood Urea Nitrogen 2 mg/dl (7-17); Calcium 8.6 mg/dl (8.4-10.2); Carbon Dioxide 31 mmol/L (22-30); Chloride 103 mmol/L (98-107); Estimated Creatinine Clearance 88 ml/min; Glucose 129 mg/dl (70-99); Magnesium 1.8 mg/dl (1.6-2.3); Potassium 3.5 mmol/L (3.5-5.1); Sodium 141 mmol/L (135-145); Total Bilirubin 1.8 mg/dl (0.2-1.3); Total Protein 5.3 g/dl (6.3-8.2); eGFR > 60.00
[2024-11-10 07:40] VITALS: BP 150/81
--- NOTE | 2024-11-10 07:53 | W.PN.HOSP.TC ---
Today's Communication/Plan
-
Npo after midnight for ERCP
cont abx
pain control
avoid Tylenol d/t active liver injury
Assessment / Plan
Assessment / Plan
Physical Exam
General: No acute distress, appears acutely ill, ambulatory without need for assist device
HEENT: NormoCephalic, Anicteric, Moist mucous membranes, [place] Conjunctivae and No Ptosis
Respiratory: Clear; No Wheezes, Rales or Rhonchi
Cardiac: S1/S2 and Regular Rhythm; No Murmur, Rub, Gallop or Peripheral Edema
GI: Soft, Non Distended, Normal Bowel Sounds, Tender (Right upper quadrant, positive Wilson sign) and No Hepatosplenomegaly
Musculoskeletal: No Clubbing, No Cyanosis and No Edema
Skin: Warm and Dry; No Rash
Neuro: AO x 3 conversant coherent
Psych: Calm
#Acute Calculous Cholecystitis
#choledocholithiasis
#Acute Hepatitis d/t biliary obstruction
-Consult GI appreciated
-Consult general surgery appreciated patient declined cholecystectomy, cont conservative mgmt, initial abx Cefotetan 2g Q12H later switched to Zosyn
-Probiotic
- With worsening pain, LFTs, and repeat MRCP showing new biliary obstruction d/t stone, per luis tube was recommended but patient also declined, GI discussed ERCP pt consented for Monday
- clear liquid, eventual NPO after midnight for ERCP Monday
- IVF LR
- prn oxycodone dilaudid
-IV toradol scheduled
- prn Zofran
-avoid Tylenol at this time d/t liver injury
Abdominal ultrasound abdomen complete:
1. Cholelithiasis no abnormal gallbladder wall thickening
2. Dilation of the common bile duct measuring 9 mm no duct filling defects
3. Question complex cyst right kidney .
Abd MRI appreciated:
1. Acute Calculous Cholecystitis
2. Mild extrahepatic biliary dilatation.
3. Tiny pancreatic cysts measuring up to 3 mm in size.
4. Small bilateral renal cysts.
5. Small hiatal hernia.
Later Repeat MRCP noted:
1. The common bile duct appears dilated measuring 1.1 cm with a 3.5 mm stone distally consistent with choledocholithiasis.
2. There is persistent gallbladder wall thickening with surrounding inflammatory changes consistent with ongoing inflammation/cholecystitis.
3. Small bilateral pleural effusions.
#Acute hyperglycemia
#Mild Diabetes
HgbA1c 7.0
Sliding scale
Diabetic Education provided
carb control diet
#Hypokalemia
Monitor and replete as necessary
#Menopause on hormonal patch
- Patient is on estradiol/norethindrone transdermal patch once a week on
DVT prophylaxis
SCDs
Full code
discussed with patient and patient's Noe
I spent a total of 50 minutes with the patient or on the floor. More than 50% of this time involved counseling and coordination of care.
Anticipated Discharge: 24 - 48 hours
Subjective/Interval History
-
Date of Service: November 10, 2024
abd pain loss of appetite persists.
Objective Data
-
Labs:
Laboratory Results
11/10/24
05:18
WBC 5.2
Hgb 11.8 L
Hct 32.4 L
Plt Count 259
PT 14.8 H
INR 1.13
APTT 30.9
Sodium 141
Potassium 3.5
Chloride 103
Carbon Dioxide 31 H
BUN 2 L
Creatinine 0.5 L
Glucose 129 H
Calcium 8.6
Total Bilirubin 1.8 H D
AST 185 H
ALT 354 H
Alkaline Phosphatase 370 H
Vital Signs:
Vital Signs
Temp Pulse Resp BP Pulse Ox
98.0 F 62 16 148/70 97
11/09/24 23:00 11/09/24 23:00 11/09/24 23:00 11/09/24 23:00 11/09/24 23:00
I&O
11/09/24 11/10/24 11/11/24
06:59 06:59 06:59
Intake Total 1640 / 1640 1550 / 1550
Balance 1640 / 1640 1550 / 1550
[2024-11-10 08:42] LABS: Glucose - Point of Care 111 mg/dl (70-99)
[2024-11-10] MEDS: NOVOLOG FLEXPEN-LOW RESISTANCE SC ×2 (08:49→16:45)
[2024-11-10] MEDS: FLORASTOR 250 MG PO ×2 (08:51→21:22)
[2024-11-10] MEDS: NSS (PRESERVATIVE FREE) 10 ML IV (08:52)
[2024-11-10] MEDS: PROTONIX IV 40 MG IV (08:52)
[2024-11-10] MEDS: LR 1000 IV (11:59)
[2024-11-10 12:08] LABS: Glucose - Point of Care 188 mg/dl (70-99)
[2024-11-10] MEDS: NOVOLOG FLEXPEN-LOW RESISTANCE 1 UNITS SC (12:09)
[2024-11-10] MEDS: LR IV (13:25)
--- NOTE | 2024-11-10 14:00 | W.PN.GI.CBS2 ---
Today's Communication / Plan
-
RIP/MOULD OPERATOR after midnight for ERCP
Assessment / Plan
-
59-year-old female with past medical history of cholelithiasis with history of cholecystitis with sepsis treated at [facility] (March 2024) and per patient states was a '2-month recovery'. Who declined surgery at that
time no other significant past medical history except for colon polyps presents to the emergency room after acute onset of severe right upper quadrant pain starting at 3 AM Monday morning after eating at a [place] buffet on Monday night. The
patient states that she developed acute onset of nausea, vomiting with right upper quadrant pain radiating through to her back. She states this was similar to her prior episode of acute cholecystitis. The patient was diagnosed with acute
cholecystitis. She was started on IV antibiotics. She was offered surgery but has since adamantly declined. She was offered cholecystostomy tube. She is still declining. We are asked to evaluate for rising LFTs and persistent acute
cholecystitis.
Impression:
-Acute cholecystitis
-Hx colon polyps
Plan:
-Continue Abx as per surgery
-Recommended acute cholecystostomy tube, patient declining
11/08/2024 MRCP shows dilated CBD 11mm with 3.5mm Distal CBD stone
11/09/24 worsening liver chemistries. no fever, leukocytosis on zosyn. no blood cultures drawn
-- had long conversation with patient and her - they are currently agreeable to have an ERCP on Monday and considering luis tube
11/10/2024 -patient is agreeable for ERCP tomorrow. N.p.o. after midnight. Hold Lovenox tonight
Subjective
Subjective
Date of Service: November 10, 2024
Patient is in significant pain requiring pain meds [id number]
Objective
Data Reviewed
Laboratory Data:
Laboratory Results
11/10/24 05:18
11/10/24 05:18
Laboratory Results
PT 14.8 Sec (11.4-14.6) H 11/10/24 05:18
INR 1.13 11/10/24 05:18
APTT 30.9 Sec (23.4-35.0) 11/10/24 05:18
Phosphorus 3.0 mg/dl (2.5-4.5) 11/10/24 05:18
Magnesium 1.8 mg/dl (1.6-2.3) 11/10/24 05:18
Total Bilirubin 1.8 mg/dl (0.2-1.3) H D 11/10/24 05:18
AST 185 U/L (14-36) H 11/10/24 05:18
ALT 354 U/L (0-35) H 11/10/24 05:18
Alkaline Phosphatase 370 U/L (38-126) H 11/10/24 05:18
Lipase 87 U/L (23-300) 11/04/24 10:24
Vital Signs and I&O:
Vital Signs
Temp Pulse Resp BP Pulse Ox
98.7 F 61 16 150/81 97
11/10/24 07:40 11/10/24 07:40 11/10/24 07:40 11/10/24 07:40 11/10/24 10:11
I&O
11/09/24 11/10/24 11/11/24
06:59 06:59 06:59
Intake Total 1640 / 1640 1550 / 1550
Balance 1640 / 1640 1550 / 1550
Physical Exam
Physical Exam
HEENT: Anicteric (Mildly icteric)
Cardiology: Normal Sinus Rhythm
GI: Soft and Tender
Neuro: Non Focal
[2024-11-10 15:45] VITALS: BP 132/77
[2024-11-10 16:43] LABS: Glucose - Point of Care 141 mg/dl (70-99)
[2024-11-10 22:27] LABS: Glucose - Point of Care 171 mg/dl (70-99)
[2024-11-10 23:00] VITALS: BP 135/64
[2024-11-11] MEDS: ZOSYN 50 IV ×5 (01:16→23:36)
[2024-11-11] MEDS: TORADOL 15 MG IV ×5 (01:17→23:33)
[2024-11-11] MEDS: LR 1000 IV ×2 (01:17→11:45)
[2024-11-11 06:21] LABS: Hemoglobin 12.5 g/dL (12.0-16.0); Mean Corp Hgb Conc. 35.7 g/dL (33.0-37.0); Mean Corpuscular Hgb 30.9 pg (27.0-31.0); Mean Corpuscular Volume 86.4 fL (81.0-99.0); Mean Platelet Volume 9.7 fL (7.4-10.4); Platelet Count 291 10^3/uL (130-400); Red Blood Cell Count 4.05 10^6/uL (4.20-5.40); Red Cell Dist. Width 13.1 % (11.5-14.5); White Blood Cell Count 6.1 10^3/uL (4.8-10.8)
[2024-11-11 06:56] LABS: ALT (SGPT) 374 U/L (0-35); AST (SGOT) 131 U/L (14-36); Albumin 3.5 g/dl (3.5-5.0); Alkaline Phosphatase 385 U/L (38-126); Blood Urea Nitrogen 2 mg/dl (7-17); Calcium 8.9 mg/dl (8.4-10.2); Carbon Dioxide 28 mmol/L (22-30); Chloride 102 mmol/L (98-107); Estimated Creatinine Clearance 88 ml/min; Glucose 139 mg/dl (70-99); Magnesium 1.8 mg/dl (1.6-2.3); Phosphorus 3.9 mg/dl (2.5-4.5); Potassium 3.4 mmol/L (3.5-5.1); Sodium 141 mmol/L (135-145); Total Bilirubin 1.3 mg/dl (0.2-1.3); Total Protein 5.9 g/dl (6.3-8.2); eGFR > 60.00
[2024-11-11 07:26] LABS: Glucose - Point of Care 135 mg/dl (70-99)
[2024-11-11 07:34] VITALS: BP 140/67
[2024-11-11] MEDS: PROTONIX IV 40 MG IV (08:37)
[2024-11-11] MEDS: NSS (PRESERVATIVE FREE) 10 ML IV (08:37)
[2024-11-11] MEDS: NOVOLOG FLEXPEN-LOW RESISTANCE SC (08:38)
[2024-11-11] MEDS: FLORASTOR 250 MG PO ×2 (08:38→21:36)
[2024-11-11 10:39] VITALS: BP 137/95; BP 140/67
[2024-11-11 10:43] LABS: Glucose - Point of Care 134 mg/dl (70-99)
[2024-11-11 10:45] VITALS: BP 135/96
[2024-11-11 11:00] VITALS: BP 129/88
[2024-11-11 11:30] LABS: Glucose - Point of Care 196 mg/dl (70-99)
[2024-11-11] MEDS: NOVOLOG FLEXPEN-LOW RESISTANCE 1 UNITS SC (11:46)
[2024-11-11 12:54] VITALS: BMI 26.1
--- NOTE | 2024-11-11 15:17 | W.PN.HOSP.TC ---
Today's Communication/Plan
-
Assessment / Plan
Assessment / Plan
Physical Exam
General: No acute distress, appears acutely ill, ambulatory without need for assist device
HEENT: NormoCephalic, Anicteric, Moist mucous membranes, [place] Conjunctivae and No Ptosis
Respiratory: Clear; No Wheezes, Rales or Rhonchi
Cardiac: S1/S2 and Regular Rhythm; No Murmur, Rub, Gallop or Peripheral Edema
GI: Soft, Non Distended, Normal Bowel Sounds, mild right upper quadrant TTP
Musculoskeletal: No Clubbing, No Cyanosis and No Edema
Skin: Warm and Dry; No Rash
Neuro: AO x 3 conversant coherent
Psych: Calm and cooperative
#Acute Calculous Cholecystitis
#choledocholithiasis
#Acute Hepatitis d/t biliary obstruction
- Underwent ERCP today 11/11, tolerated procedure well, clear liquid diet for today, advance per GI recommendations
- Evaluated by general surgery, patient declined cholecystectomy or percutaneous cholecystostomy tube, cont conservative mgmt
-Continue antibiotics with Zosyn
- Monitor for improvement in LFTs following ERCP
- IVF LR
- Pain control as needed
-avoid Tylenol at this time d/t liver injury
#Acute hyperglycemia
#Mild Diabetes
- HgbA1c 7.0
- Sliding scale
- Diabetic Education provided
- carb control diet
#Hypokalemia
- Monitor and replete as necessary
#Menopause on hormonal patch
- Patient is on estradiol/norethindrone transdermal patch once a week on
DVT prophylaxis
SCDs
Full code
discussed with patient
I spent a total of 50 minutes
Anticipated Discharge: 24 - 48 hours
Subjective/Interval History
-
Date of Service: November 11, 2024
Patient was seen and examined at bedside. She underwent ERCP today and tolerated procedure well. Still with some residual abdominal pain.
Objective Data
-
Labs:
Laboratory Results
11/11/24
05:14
WBC 6.1
Hgb 12.5
Hct 35.0 L
Plt Count 291
Sodium 141
Potassium 3.4 L
Chloride 102
Carbon Dioxide 28
BUN 2 L
Creatinine 0.5 L
Glucose 139 H
Calcium 8.9
Total Bilirubin 1.3
AST 131 H
ALT 374 H
Alkaline Phosphatase 385 H
Vital Signs:
Vital Signs
Temp Pulse Resp BP Pulse Ox
98.8 F 65 12 129/88 95
11/11/24 10:39 11/11/24 11:00 11/11/24 11:00 11/11/24 11:00 11/11/24 11:00
I&O
11/10/24 11/11/24 11/12/24
06:59 06:59 06:59
Intake Total 1550 / 1550 50 / 50
Balance 1550 / 1550 50 / 50
Review of Systems
-
History Source: Patient
All other systems: Reviewed and negative
Abdomen/GI: Reports Abdominal Pain
Physical Exam
-
General: No Apparent Distress
[2024-11-11 15:23] VITALS: BP 169/85
[2024-11-11 16:38] LABS: Glucose - Point of Care 221 mg/dl (70-99)
[2024-11-11] MEDS: NOVOLOG FLEXPEN-LOW RESISTANCE 2 UNITS SC (17:07)
[2024-11-11 21:35] LABS: Glucose - Point of Care 202 mg/dl (70-99)
[2024-11-11 23:40] VITALS: BP 132/70
[2024-11-12] MEDS: LR 1000 IV ×2 (04:18→15:54)
[2024-11-12] MEDS: TORADOL 15 MG IV ×4 (06:16→23:03)
[2024-11-12] MEDS: ZOSYN 50 IV ×4 (06:20→23:03)
[2024-11-12 07:19] LABS: Hematocrit 34.6 % (37.0-47.0); Hemoglobin 12.4 g/dL (12.0-16.0); Mean Corp Hgb Conc. 35.8 g/dL (33.0-37.0); Mean Corpuscular Hgb 31.3 pg (27.0-31.0); Mean Corpuscular Volume 87.4 fL (81.0-99.0); Mean Platelet Volume 9.5 fL (7.4-10.4); Platelet Count 335 10^3/uL (130-400); Red Blood Cell Count 3.96 10^6/uL (4.20-5.40); Red Cell Dist. Width 13.4 % (11.5-14.5); White Blood Cell Count 7.4 10^3/uL (4.8-10.8)
[2024-11-12 07:30] VITALS: BP 124/75
[2024-11-12 07:44] LABS: Glucose - Point of Care 111 mg/dl (70-99)
[2024-11-12 08:04] LABS: ALT (SGPT) 437 U/L (0-35); AST (SGOT) 195 U/L (14-36); Albumin 3.5 g/dl (3.5-5.0); Alkaline Phosphatase 428 U/L (38-126); Blood Urea Nitrogen 6 mg/dl (7-17); Carbon Dioxide 29 mmol/L (22-30); Chloride 103 mmol/L (98-107); Estimated Creatinine Clearance 88 ml/min; Glucose 126 mg/dl (70-99); Magnesium 1.8 mg/dl (1.6-2.3); Phosphorus 3.9 mg/dl (2.5-4.5); Potassium 3.3 mmol/L (3.5-5.1); Sodium 142 mmol/L (135-145); Total Bilirubin 1.3 mg/dl (0.2-1.3); Total Protein 5.8 g/dl (6.3-8.2); eGFR > 60.00
[2024-11-12] MEDS: PROTONIX IV 40 MG IV (08:26)
[2024-11-12] MEDS: NSS (PRESERVATIVE FREE) 10 ML IV (08:26)
[2024-11-12] MEDS: NOVOLOG FLEXPEN-LOW RESISTANCE SC (08:27)
[2024-11-12] MEDS: FLORASTOR 250 MG PO ×2 (08:27→19:32)
[2024-11-12] MEDS: KLOR-CON 40 MEQ PO (09:14)
[2024-11-12 11:31] LABS: Glucose - Point of Care 202 mg/dl (70-99)
[2024-11-12] MEDS: NOVOLOG FLEXPEN-LOW RESISTANCE 1 UNITS SC (11:44)
[2024-11-12] MEDS: LR IV (13:20)
--- NOTE | 2024-11-12 13:34 | W.PN.GI.CBS2 ---
Addendum entered and electronically signed by Ifrah Sullivan MD 11/12/24 14:26:
I saw and examined the patient.
The LICENSE DISTRIBUTOR's note was reviewed and I agree with the note.
Denies any abdominal pain. Tolerating diet-ate soup/bread
A.m. labs AST 195/ALT 437/alkaline phosphatase 428/total bilirubin 1.3-mildly elevated
plan
Low-fat diet
Continue to trend LFT
Patient has been refusing cholecystectomy/cholecystostomy tube recommended by surgery during this admission. Will recommend continue follow-up with surgery
cont antibiotics
No further recommendation from GI standpoint. Will sign off
Original Note:
Today's Communication / Plan
-
s/p ERCP with stone removal and still noted retained stones in gallbladder on imaging
mild increased LFT's today but feeling well no fever
Continue Abx
pt has been recommended luis tube and luis-- and still refusing-- I discussed at length risk of recurrent sepsis and also discussed there are benefits and risk with surgical intervention. Pt relates sister has luis 2 years ago and still not
feeling well and pt hesitant to proceed
she will consider OP surgical eval with Dr. Manrique and contact information on chart
will allow low fat diet as she has started eating bread at her bedside without difficulty
Pt ambulating well
trend labs and diet tolerance
updated nursing staff
Assessment / Plan
-
59-year-old female with past medical history of cholelithiasis with history of cholecystitis with sepsis treated at [facility] (March 2024) and per patient states was a '2-month recovery'. Who declined surgery at that
time no other significant past medical history except for colon polyps presents to the emergency room after acute onset of severe right upper quadrant pain starting at 3 AM Monday morning after eating at a [place] buffet on Monday night. The
patient states that she developed acute onset of nausea, vomiting with right upper quadrant pain radiating through to her back. She states this was similar to her prior episode of acute cholecystitis. The patient was diagnosed with acute
cholecystitis. She was started on IV antibiotics. She was offered surgery but has since adamantly declined. She was offered cholecystostomy tube. She is still declining. We are asked to evaluate for rising LFTs and persistent acute
cholecystitis. Work up on admission with US with cholelithiasis dilation CBD and complex renal cyst. MRI with acute calculus cholecystitis, mild biliary dilatation, tiny panc cyst up to 3 mm small renal cyst and small HH. MRCP CBD 1.1cn wutg 3.5
nn stone concern for choledocholithiasis. small b/l effusion
11/11 ERCP - The major papilla was on the rim of a diverticulum.
- A filling defect consistent with a stone was seen on
the cholangiogram.
- The common bile duct was mildly dilated.
- Choledocholithiasis was found. Complete removal was
accomplished by biliary sphincterotomy and balloon
extraction.
- A biliary sphincterotomy was performed.
- Major papilla was successfully dilated.
- The biliary tree was swept.
Impression:
-Acute cholecystitis
-choledocholithiasis s/p ERCP with CBD dilation and stone removal
-Hx colon polyps
-small pancreatic cyst
complex renal cyst on US and small b/l renal Ct on MRI
Plan:
s/p ERCP with stone removal and still noted retained stones in gallbladder on imaging
mild increased LFT's today but feeling well no fever
Continue Abx
pt has been recommended luis tube and luis-- and still refusing-- I discussed at length risk of recurrent sepsis and also discussed there are benefits and risk with surgical intervention. Pt relates sister has luis 2 years ago and still not
feeling well and pt hesitant to proceed
she will consider OP surgical eval with Dr. Manrique and contact information on chart
will allow low fat diet as she has started eating bread at her bedside without difficulty
Pt ambulating well
trend labs and diet tolerance
updated nursing staff
Subjective
Subjective
Date of Service: November 12, 2024
11/07 stool on clear diet minimal pain no fever
Objective
Data Reviewed
Laboratory Data:
Laboratory Results
11/12/24 06:24
11/12/24 06:24
Laboratory Results
PT 14.8 Sec (11.4-14.6) H 11/10/24 05:18
INR 1.13 11/10/24 05:18
APTT 30.9 Sec (23.4-35.0) 11/10/24 05:18
Phosphorus 3.9 mg/dl (2.5-4.5) 11/12/24 06:24
Magnesium 1.8 mg/dl (1.6-2.3) 11/12/24 06:24
Total Bilirubin 1.3 mg/dl (0.2-1.3) 11/12/24 06:24
AST 195 U/L (14-36) H 11/12/24 06:24
ALT 437 U/L (0-35) H 11/12/24 06:24
Alkaline Phosphatase 428 U/L (38-126) H 11/12/24 06:24
Lipase 87 U/L (23-300) 11/04/24 10:24
Vital Signs and I&O:
Vital Signs
Temp Pulse Resp BP Pulse Ox
97.7 F 68 18 124/75 94
11/12/24 07:30 11/12/24 07:30 11/12/24 07:30 11/12/24 07:30 11/12/24 07:30
I&O
11/11/24 11/12/24 11/13/24
06:59 06:59 06:59
Intake Total 2089
Balance 2089
Physical Exam
Physical Exam
HEENT: Anicteric and Moist mucous membranes
Cardiology: Normal Sinus Rhythm
Pulmonary: Clear
GI: Soft, Non Distended, Non Tender (minimal ) and Other (RLQ scar )
Extremities: No Edema
Neuro: Non Focal
--- NOTE | 2024-11-12 14:47 | W.PN.HOSP.TC ---
Addendum entered and electronically signed by Ted Chu DO 11/12/24 15:08:
Additional diagnosis
Elevated total bilirubin, now resolved
Original Note:
Today's Communication/Plan
-
Assessment / Plan
Assessment / Plan
Physical Exam
General: No acute distress, appears acutely ill, ambulatory without need for assist device
HEENT: NormoCephalic, Anicteric, Moist mucous membranes, [place] Conjunctivae and No Ptosis
Respiratory: Clear; No Wheezes, Rales or Rhonchi
Cardiac: S1/S2 and Regular Rhythm; No Murmur, Rub, Gallop or Peripheral Edema
GI: Soft, Non Distended, Normal Bowel Sounds, nontender
Musculoskeletal: No Clubbing, No Cyanosis and No Edema
Skin: Warm and Dry; No Rash
Neuro: AO x 3 conversant coherent
Psych: Calm and cooperative
#Acute Calculous Cholecystitis
#choledocholithiasis
#Acute Hepatitis d/t biliary obstruction
- Underwent ERCP 11/11 with removal of stone and sludge, tolerated procedure well, advance diet to low-fat, GI has signed off
- Evaluated by general surgery, patient declined cholecystectomy or percutaneous cholecystostomy tube despite being advised of risks, cont conservative mgmt
- Continue antibiotics with Zosyn
- Trend LFTs
- IVF LR
- Pain control as needed
- avoid Tylenol at this time d/t liver injury
#Acute hyperglycemia
#Mild Diabetes
- HgbA1c 7.0
- Sliding scale
- Diabetic Education provided
- carb control diet
#Hypokalemia
-Serum potassium 3.3 on labs this morning, repleted p.o.
- Monitor and replete as necessary
#Menopause on hormonal patch
- Patient is on estradiol/norethindrone transdermal patch once a week on
DVT prophylaxis
SCDs
Full code
discussed with patient
I spent a total of 40 minutes
Anticipated Discharge: 24 - 48 hours
Subjective/Interval History
-
Date of Service: November 12, 2024
Patient was seen and examined at bedside this morning. Abdominal pain improved. LFTs slightly uptrending. Advancing diet to low-fat.
Objective Data
-
Labs:
Laboratory Results
11/12/24
06:24
WBC 7.4
Hgb 12.4
Hct 34.6 L
Plt Count 335
Sodium 142
Potassium 3.3 L
Chloride 103
Carbon Dioxide 29
BUN 6 L
Creatinine 0.6
Glucose 126 H
Calcium 9.0
Total Bilirubin 1.3
AST 195 H
ALT 437 H
Alkaline Phosphatase 428 H
Vital Signs:
Vital Signs
Temp Pulse Resp BP Pulse Ox
97.7 F 68 18 124/75 94
11/12/24 07:30 11/12/24 07:30 11/12/24 07:30 11/12/24 07:30 11/12/24 07:30
I&O
11/11/24 11/12/24 11/13/24
06:59 06:59 06:59
Intake Total 2089
Balance 2089
Review of Systems
-
History Source: Patient
All other systems: Reviewed and negative
Physical Exam
-
General: No Apparent Distress
--- NOTE | 2024-11-12 14:58 | PN.CDI ---
CDI
- -
CDI:
Physician Documentation Request
Admit Date: 11/04/24 14:20
Dear Doctor Vlad,
Please review the following and provide your response in the progress notes.
Clinical Indicators:
Laboratory Tests
11/04/24 11/05/24 11/06/24
10:24 05:07 05:04
Total Bilirubin 0.9 1.2 1.1
11/07/24 11/08/24 11/09/24
07:28 05:15 05:14
Total Bilirubin 0.6 2.0 H D 2.8 H
11/10/24 11/11/24 11/12/24
05:18 05:14 06:24
Total Bilirubin 1.8 H D 1.3 1.3
Based on the above and your clinical assessment, please clarify the appropriate diagnosis, if significant, that supports the above abnormalities and additional evaluation, monitoring and/or treatment rendered:
Elevated total bilirubin, now resolved
Abnormal lab value, clinically insignificant
Other(please specify)
Use of terms such as suspected, likely, concern for, or probable (associated with a specific diagnosis that is being evaluated, monitored, or treated as if it exists) are acceptable and can be coded in the inpatient setting, when documented at the
time of discharge.
Thank you,
Radha Berg RN BSN CCDS
CDI Specialist
Please contact via tiger text
Please use your independent medical judgment in providing your response.
[2024-11-12 15:30] VITALS: BP 137/79
[2024-11-12 16:47] LABS: Glucose - Point of Care 289 mg/dl (70-99)
--- NOTE | 2024-11-12 17:02 | CM ---
Pt declined surgery at this time.
Continues on IV antibiotics.
Offered VN she declined need.
Her will drive her home at ok.
PLAN Home no needs
[2024-11-12] MEDS: NOVOLOG FLEXPEN-LOW RESISTANCE 3 UNITS SC (17:25)
[2024-11-12 21:38] LABS: Glucose - Point of Care 195 mg/dl (70-99)
[2024-11-12 23:35] VITALS: BP 145/76
[2024-11-13] MEDS: LR 1000 IV (02:29)
[2024-11-13] MEDS: TORADOL 15 MG IV (05:22)
[2024-11-13] MEDS: ZOSYN 50 IV (05:22)
[2024-11-13 06:01] LABS: Hemoglobin 12.6 g/dL (12.0-16.0); Mean Corpuscular Hgb 31.3 pg (27.0-31.0); Mean Corpuscular Volume 89.6 fL (81.0-99.0); Mean Platelet Volume 9.4 fL (7.4-10.4); Platelet Count 309 10^3/uL (130-400); Red Blood Cell Count 4.02 10^6/uL (4.20-5.40)
[2024-11-13 06:26] LABS: ALT (SGPT) 416 U/L (0-35); AST (SGOT) 144 U/L (14-36); Albumin 3.1 g/dl (3.5-5.0); Alkaline Phosphatase 335 U/L (38-126); Blood Urea Nitrogen 4 mg/dl (7-17); Calcium 8.8 mg/dl (8.4-10.2); Carbon Dioxide 30 mmol/L (22-30); Chloride 107 mmol/L (98-107); Estimated Creatinine Clearance 88 ml/min; Glucose 120 mg/dl (70-99); Magnesium 1.9 mg/dl (1.6-2.3); Phosphorus 3.9 mg/dl (2.5-4.5); Potassium 3.5 mmol/L (3.5-5.1); Sodium 143 mmol/L (135-145); Total Protein 5.5 g/dl (6.3-8.2); eGFR > 60.00
[2024-11-13 07:45] VITALS: BP 139/63
[2024-11-13 07:56] LABS: Glucose - Point of Care 125 mg/dl (70-99)
[2024-11-13] MEDS: NSS (PRESERVATIVE FREE) 10 ML IV (09:38)
[2024-11-13] MEDS: PROTONIX IV 40 MG IV (09:38)
[2024-11-13] MEDS: FLORASTOR 250 MG PO (09:38)
[2024-11-13] MEDS: NOVOLOG FLEXPEN-LOW RESISTANCE SC ×2 (09:39→13:01)
--- NOTE | 2024-11-13 11:06 | W.DCSUMMARY ---
Discharge Summary
Discharge Data
Date of Admission: 11/04/24
Date of Discharge: 11/13/24
-
Pending Results: No
Hospital Course
Ms. Gongora is a 59-year-old female with a medical history of gallbladder disease (cholecystitis with sepsis treated at [facility] March 2024, reluctant to undergo definitive cholecystectomy), appendectomy, and who presented with right upper
quadrant pain associated with nausea and vomiting. She was found to have recurrence of acute calculus cholecystitis and subsequent choledocholithiasis. She was started on antibiotics with Zosyn and underwent ERCP on 11/11 with removal of stone and
sludge. She tolerated the procedure well. Her LFTs have trended down since her procedure. She continues to decline definitive management with cholecystectomy or percutaneous cholecystostomy tube. Her initial leukocytosis resolved with antibiotic
treatment. She will be continued on antibiotics with Augmentin for another 10 days. She will be given contact information for general surgery with instructions to call them if she changes her mind and would like to pursue cholecystectomy. We
discussed in detail the risks associated with not pursuing definitive treatment with cholecystectomy, including recurrence of recurrence of infection which could be fatal if untreated. She has remained afebrile and normotensive throughout this
admission. At time of hospital discharge she was medically stable. She will need close follow-up with her primary care physician and with general surgery if she would like to pursue cholecystectomy. She will need to repeat blood work to monitor
her liver function tests in approximately 5 days. She should remain on a low-fat and carbohydrate controlled diet, as she was noted to have a hemoglobin A1c of 7.0% which qualifies her as a diabetic. She was treated with sliding scale insulin as
needed while in the hospital. She should follow-up with her primary care physician regarding ongoing blood glucose monitoring and diabetic management as needed. We would advise starting metformin when liver function tests are within normal limits.
Physical Exam
General: No acute distress, ambulatory without need for assist device
HEENT: NormoCephalic, Anicteric, Moist mucous membranes, [place] Conjunctivae and No Ptosis
Respiratory: Clear; No Wheezes, Rales or Rhonchi
Cardiac: S1/S2 and Regular Rhythm; No Murmur, Rub, Gallop or Peripheral Edema
GI: Soft, Non Distended, Normal Bowel Sounds, nontender
Musculoskeletal: No Clubbing, No Cyanosis and No Edema
Skin: Warm and Dry; No Rash
Neuro: AO x 3 conversant coherent
Psych: Calm and cooperative
More than 30 minutes spent in discharge including
Final examination of the patient
Summarizing hospital stay
Instructions for continuing care to all relevant caregivers
Preparation of discharge records, prescriptions, and referral forms
Total time spent (in minutes): 50
Discharge Plan
-
Patient Disposition: Home (Routine Discharge)
Discharge Diagnosis/Procedures: Acute calculus cholecystitis, choledocholithiasis
Diet: Low Fat
Activity: No restrictions
Blood Work: comprehensive metabolic panel
Activity Restrictions/Additional Instructions:
Ms. Gongora is a 59-year-old female with a medical history of gallbladder disease (cholecystitis with sepsis treated at [facility] March 2024, reluctant to undergo definitive cholecystectomy), appendectomy, and who presented with right upper
quadrant pain associated with nausea and vomiting. She was found to have recurrence of acute calculus cholecystitis and subsequent choledocholithiasis. She was started on antibiotics with Zosyn and underwent ERCP on 11/11 with removal of stone and
sludge. She tolerated the procedure well. Her LFTs have trended down since her procedure. She continues to decline definitive management with cholecystectomy or percutaneous cholecystostomy tube. Her initial leukocytosis resolved with antibiotic
treatment. She will be continued on antibiotics with Augmentin for another 10 days. She will be given contact information for general surgery with instructions to call them if she changes her mind and would like to pursue cholecystectomy. We
discussed in detail the risks associated with not pursuing definitive treatment with cholecystectomy, including recurrence of recurrence of infection which could be fatal if untreated. She has remained afebrile and normotensive throughout this
admission. At time of hospital discharge she was medically stable. She will need close follow-up with her primary care physician and with general surgery if she would like to pursue cholecystectomy. She will need to repeat blood work to monitor
her liver function tests in approximately 5 days. She should remain on a low-fat and carbohydrate controlled diet, as she was noted to have a hemoglobin A1c of 7.0% which qualifies her as a diabetic. She was treated with sliding scale insulin as
needed while in the hospital. She should follow-up with her primary care physician regarding ongoing blood glucose monitoring and diabetic management as needed. We would advise starting metformin when liver function tests are within normal limits.
Referrals:
Agapito Manrique MD [Active] - (follow up to review for gallbladder removal )
Ted Berger MD [Family Provider] -
Prescriptions:
New
(DME) Contour Next Test Strips Strip
Qty: 200 0RF
Rx Instructions:
As Directed
(DME) lancets [Color Lancets] 21 gauge Misc
Qty: 200 0RF
Rx Instructions:
As Directed
pantoprazole 40 mg Tablet,Delayed Release (Dr/Ec)
40 mg PO DAILY 30 Days Qty: 30 0RF
amoxicillin-pot clavulanate [Augmentin] 500-125 mg tablet
1 tab PO BID 10 Days Qty: 20 0RF
Continued
ascorbic acid (vitamin C) [Vitamin C] 500 mg Tablet
500 mg PO DAILY
cholecalciferol (vitamin D3) [Vitamin D3] 25 mcg (1,000 unit) Tablet
25 mcg PO DAILY
yd-3-khi-epa-fish oil-vit D3 [Fish Oil-Vit D3] 300-1,000-1,000 mg-mg-unit Capsule
1 cap PO DAILY
Combipatch
1 patch topical TH
Patient Comments:
PATIENT HAS PATCH ON TODAY 11/04/24 STATED SHE ONLY DOES ONCE A WEEK, TWICE A WEEK WAS TOO MUCH FOR HER, CALLED THE [facility] THAT SHE STATED SHE GOT IT AT BUT THEY DO NOT HAVE RECORDS FOR HER AND NO ECW
Discharge Orders:
Discharge Patient (As Directed); Ordered 11/13/24
Ordered By: Ted Chu
Discharge Date and Time
Print Language: TOGOLESE
[2024-11-13 11:26] LABS: Glucose - Point of Care 203 mg/dl (70-99)
--- NOTE | 2024-11-13 11:30 | CM ---
entered order for discharge.
Offered VN she declined need.
Her will drive her home at [place].
PLAN Home no needs
[2024-11-13 13:30] VITALS: BP 138/65
--- NOTE | 2024-11-13 13:42 | PTCARENOTE ---
patient denied need for analgesia this am for c/o abd discomfort. tolerating low fat diet, independent in room, vss, discharged to home with her .
== END 2024-11-13 13:45 | disposition home or self-care (01) | DRG 445 ==
LOC: 3 WEST ACU 14:20
PROVIDERS: Clinical Nurse Specialist Family Health; Internal Medicine; Internal Medicine Gastroenterology; Physician Assistant; Radiology Vascular & Interventional Radiology; Registered Nurse; ADMITTING PHYSICIAN Internal Medicine; ATTENDING PHYSICIAN Internal Medicine; CONSULT PHYSICIAN Internal Medicine; CONSULT PHYSICIAN Surgery; EMERGENCY PHYSICIAN Emergency Medicine; FAMILY PHYSICIAN Psychiatry & Neurology Neurology; OTHER PHYSICIAN Internal Medicine Gastroenterology
PROC: 0FC98ZZ Extirpation of Matter from Common Bile Duct, Via Natural or Artificial Opening Endoscopic (ICD-10-PCS; 2024-11-11)
PROC: BF141ZZ Fluoroscopy of Gallbladder, Bile Ducts and Pancreatic Ducts using Low Osmolar Contrast (ICD-10-PCS; 2024-11-11)
DX: K80.67 Calculus of gallbladder and bile duct with acute and chronic cholecystitis with obstruction (principal); K86.2 Cyst of pancreas; E11.65 Type 2 diabetes mellitus with hyperglycemia; K44.9 Diaphragmatic hernia without obstruction or gangrene; E80.6 Other disorders of bilirubin metabolism; N21.0 Calculus in bladder; E87.6 Hypokalemia; Z79.890 Hormone replacement therapy; Z86.0100 Personal history of colon polyps, unspecified; Z80.0 Family history of malignant neoplasm of digestive organs; Z90.49 Acquired absence of other specified parts of digestive tract
CPT/HCPCS: 74181; 74183; 74330; 76000; 76700; 80053; 80061; 81003; 81015; 82248; 82962; 83036; 83690; 83735; 84100; 84484; 85025; 85027; 85610; 85730; 93005; 96361; 96374; 96375; 99285; A9575; C1726; C1769